=== PATIENT | male | born 1995 | race Hispanic/Latino ===

== ENCOUNTER → 2017-12-21 15:53 | Outpatient (CLI) | payer OTHER, MEDICAID, SELFPAY ==
[2017-12-21 16:27] LABS: Add Manual Diff / Slide Review NO; Basophils Percent Auto 0.3 % (0-2); Eosinophils Percent Auto 0.3 % (2-4); Hematocrit 46.7 % (41-53); Hemoglobin 15.8 g/dL (13.5-17.5); Lymphocytes Percent Auto 35.8 % (25-40); Mean Corpuscular HGB Conc 33.8 % (30-36); Mean Corpuscular Hemoglobin 30.6 PG (26-34); Mean Corpuscular Volume 90.5 fL (80-100); Monocytes Percent Auto 9.1 % (3-14); Neutrophils Absolute Auto 3600 /uL (3000-5900); Neutrophils Percent Auto 54.5 % (50-75); Platelet Count 157 X10^3/uL (150-400); Red Blood Cell Count 5.16 X10^6/uL (4.5-5.9); Red Cell Distribution Width 13.2 % (11.6-14.8); White Blood Cell Count 6.6 X10^3/uL (4.5-11.0)
[2017-12-21 16:51] LABS: Alanine Aminotransferase 16 IU/L (21-72); Aspartate Aminotransferase 38 IU/L (17-59); Lipase 82 U/L (23-300)
[2017-12-23 14:23] LABS: Valproic Acid (Depakene) Total 119.9 mg/L (50.0-100.0)
== END ==
PROVIDERS: PCP Pediatrics; Visit Provider Psychiatry & Neurology Neurology with Special Qualifications in Child Neurology
DX: R74.0 Nonspecific elevation of levels of transaminase and lactic acid dehydrogenase [LDH] (principal); R74.8 Abnormal levels of other serum enzymes; R79.89 Other specified abnormal findings of blood chemistry; T42.6X5A Adverse effect of other antiepileptic and sedative-hypnotic drugs, initial encounter
CPT/HCPCS: 36415; 80164; 83690; 84450; 84460; 85025

== ENCOUNTER 2019-03-08 17:19 | Emergency (ER) | payer OTHER, MEDICAID, SELFPAY ==
[2019-03-08] VITALS (9 sets, daily range): BP systolic 98–138; BP diastolic 42–78; PULSE 78–128; RESP 18–24; TEMP 36.7; O2SAT 92–100
--- NOTE | 2019-03-08 17:32 | ED.SEIZURE ---
HPI - Seizure <Trina Hatch DO - Last Filed: 03/09/19 07:17> General Chief Complaint: Seizure Stated Complaint: Seizure History Time Seen by Provider: 03/08/19 17:23 Source: family and EMS History of Present Illness HPI Narrative: patient is a 23-year-old male with history of seizure presenting with seizure. Mom states that he found him actively having seizure she was prolonged than normal but still under 10 minutes. He had no urinary incontinence. He had shaking all over. He was given Versed 2 mg IM by EMS. Mom thinks that he has not been taking his Depakote as prescribed. Does have some questionable drug history use although does not appear to be IVDA. patient currently resting after Versed MD complaint: seizure Related Data Previous Rx's Medication Instructions Recorded divalproex [Depakote] 500 mg PO BID #60 tab 03/08/19 Allergies Allergy/AdvReac Type Severity Reaction Status Date / Time No Known Drug Allergies Allergy Verified 03/08/19 17:37 Review of Systems <Trina Hatch DO - Last Filed: 03/09/19 07:17> Review of Systems ROS Unobtainable: Unobtainable due to medical condition Patient History <DO Carmel Jerez Last Filed: 03/09/19 07:17> Medical History Seizure disorder (Acute) Social History Smoking Status: Never smoker Exam <DO Carmel Jerez Last Filed: 03/09/19 07:17> Initial Vital Signs Initial Vital Signs: Vital Signs Temperature 98.1 F 03/08/19 17:10 Pulse Rate 128 H 03/08/19 17:10 Respiratory Rate 24 03/08/19 17:10 Blood Pressure 138/66 03/08/19 17:10 Pulse Oximetry 92 03/08/19 17:10 GENERAL: thin resting moving young man not following commands HEENT: Head atraumatic,EOMI, pupils reactive, face symmetric CARDIOVASCULAR: Regular rate and rhythm without murmurs, rubs or gallops. RESPIRATORY: Breath sounds equal bilaterally, no wheezes rales or rhonchi. ABDOMEN: Soft, nontender. Normoactive bowel sounds all 4 quadrants. No guarding or rebound. EXTREMITIES: Normal range of motion, no clubbing or edema. Neurovascularly intact NEUROLOGICAL: moving all extremities SKIN: Warm, dry, no laceration, no petechiae, no rashes or lesions. <Jordan Calderon DO - Last Filed: 03/09/19 03:16> Initial Vital Signs Initial Vital Signs: Vital Signs Temperature 98.1 F 03/08/19 17:10 Pulse Rate 128 H 03/08/19 17:10 Respiratory Rate 24 03/08/19 17:10 Blood Pressure 138/66 03/08/19 17:10 Pulse Oximetry 92 03/08/19 17:10 Course <Trina Hatch DO - Last Filed: 03/09/19 07:17> Orders Ordered: Discontinued Medications Divalproex Sodium (Depakote) 500 mg PO NOW ONE Stop: 03/08/19 20:28 Last Admin: 03/08/19 20:36 Dose: 500 mg Documented by: RAJIV Sodium Chloride (Normal Saline 0.9%) 1,000 mls @ 1,000 mls/hr IV BOLUS ONE Stop: 03/08/19 18:22 Last Infusion: 03/08/19 19:00 Dose: 0 mls/hr Documented by: Admin: 03/08/19 17:33 Dose: 1,000 mls/hr Documented by: RAJIV Vital Signs Vital signs: Vital Signs - 8 hr 03/08/19 19:30 03/08/19 20:00 03/08/19 20:43 Pulse Rate 86 83 78 Respiratory Rate 20 20 18 Blood Pressure [Right Arm] 105/60 101/60 108/78 Pulse Oximetry 97 97 100 <DO Carmel Gloria Last Filed: 03/09/19 03:16> Course Course Narrative: received in sign out from Dr. Hatch. I've performed an independent history and physical exam. Labs have returned, patient is awake and alert and asymptomatic. The Depakote is a send out and we will not receive the results today. Patient given dose of Depakote here in the department, return precautions given to him and family. Questions answered to their apparent satisfaction Orders Ordered: Discontinued Medications Divalproex Sodium (Depakote) 500 mg PO NOW ONE Stop: 03/08/19 20:28 Last Admin: 03/08/19 20:36 Dose: 500 mg Documented by: RAJIV Sodium Chloride (Normal Saline 0.9%) 1,000 mls @ 1,000 mls/hr IV BOLUS ONE Stop: 03/08/19 18:22 Last Infusion: 03/08/19 19:00 Dose: 0 mls/hr Documented by: Admin: 03/08/19 17:33 Dose: 1,000 mls/hr Documented by: RAJIV Vital Signs Vital signs: Vital Signs - 8 hr 03/08/19 19:30 03/08/19 20:00 03/08/19 20:43 Pulse Rate 86 83 78 Respiratory Rate 20 20 18 Blood Pressure [Right Arm] 105/60 101/60 108/78 Pulse Oximetry 97 97 100 MDM - Seizure <Trina Hatch DO - Last Filed: 03/09/19 07:17> Lab Data Result diagrams: 03/08/19 17:32 03/08/19 17:32 Labs: Lab Results 03/08/19 03/08/19 03/08/19 Range/Units 17:32 17:32 20:31 WBC 19.7 H (4.5-11.0) X10^3/uL RBC 5.30 (4.5-5.9) X10^6/uL Hgb 15.3 (13.5-17.5) g/dL Hct 46.2 (41-53) % MCV 87.1 (80-100) fL MCH 28.8 (26-34) PG MCHC 33.1 (30-36) % RDW 14.6 (11.6-14.8) % Plt Count 352 (150-400) X10^3/uL Neut % (Auto) 75.7 H (50-75) % Lymph % (Auto) 17.8 L (25-40) % [place]undy % (Auto) 6.0 (3-14) % Eos % (Auto) 0.1 L (2-4) % Baso % (Auto) 0.4 (0-2) % Neut # (Auto) 92925 H (4815-3265) /uL Lymph # (Auto) 3500 (6656-4296) /uL Grundy # (Auto) 1200 H (0-900) /uL Eos # (Auto) 0 (0-450) /uL Baso # (Auto) 100 (0-100) /uL Sodium 137 (137-145) mmol/L Potassium 3.6 (3.4-5.1) mmol/L Chloride 99 (98-107) mmol/L Carbon Dioxide 18 L (22-32) mmol/L BUN 7 L (9-20) mg/dL Creatinine 0.80 (0.66-1.25) mg/dL Estimated GFR > 60.0 (>60) mL/min BUN/Creatinine Ratio 8.8 (6-22) Glucose 149 H (70-100) mg/dL Calcium 9.9 (8.4-10.2) mg/dL Magnesium 2.0 (1.6-2.3) mg/dL Urine Color Yellow Urine Appearance Clear Urine pH 7.5 (4.5-8.0) Ur Specific [place] 1.020 (1.000-1.035) Urine Protein Negative (Negative) Urine Glucose (UA) Negative (Negative) g/dL Urine Ketones 1+ H (NEGATIVE) Urine Occult Blood Negative (Negative) Urine Nitrate Negative (Negative) Urine Bilirubin Negative (NEGATIVE) Urine Urobilinogen 0.2 (0.2) E.U./dL Ur Leukocyte Esterase Negative (NEGATIVE) U Opiates 300ng/mL cut (Negative) Ur Oxycodone Screen (Negative) Urine Methadone Screen (Negative) Ur Barbiturates Screen (Negative) U Tricyclic Antidepress (Negative) Ur Phencyclidine Scrn (Negative) Ur Amphetamines Screen (Negative) U Methamphetamines Scrn (Negative) Ur MDMA Scrn (Ecstasy) (Negative) U Benzodiazepines Scrn (Negative) Urine Cocaine Screen (Negative) U Marijuana (THC) Screen (Negative) 03/08/19 Range/Units 20:31 WBC (4.5-11.0) X10^3/uL RBC (4.5-5.9) X10^6/uL Hgb (13.5-17.5) g/dL Hct (41-53) % MCV (80-100) fL MCH (26-34) PG MCHC (30-36) % RDW (11.6-14.8) % Plt Count (150-400) X10^3/uL Neut % (Auto) (50-75) % Lymph % (Auto) (25-40) % Grundy % (Auto) (3-14) % Eos % (Auto) (2-4) % Baso % (Auto) (0-2) % Neut # (Auto) (8798-8564) /uL Lymph # (Auto) (7909-4568) /uL Grundy # (Auto) (0-900) /uL Eos # (Auto) (0-450) /uL Baso # (Auto) (0-100) /uL Sodium (137-145) mmol/L Potassium (3.4-5.1) mmol/L Chloride (98-107) mmol/L Carbon Dioxide (22-32) mmol/L BUN (9-20) mg/dL Creatinine (0.66-1.25) mg/dL Estimated GFR (>60) mL/min BUN/Creatinine Ratio (6-22) Glucose (70-100) mg/dL Calcium (8.4-10.2) mg/dL Magnesium (1.6-2.3) mg/dL Urine Color Urine Appearance Urine pH (4.5-8.0) Ur Specific [place] (1.000-1.035) Urine Protein (Negative) Urine Glucose (UA) (Negative) g/dL Urine Ketones (NEGATIVE) Urine Occult Blood (Negative) Urine Nitrate (Negative) Urine Bilirubin (NEGATIVE) Urine Urobilinogen (0.2) E.U./dL Ur Leukocyte Esterase (NEGATIVE) U Opiates 300ng/mL cut Negative (Negative) Ur Oxycodone Screen Negative (Negative) Urine Methadone Screen Negative (Negative) Ur Barbiturates Screen Negative (Negative) U Tricyclic Antidepress Negative (Negative) Ur Phencyclidine Scrn Negative (Negative) Ur Amphetamines Screen Negative (Negative) U Methamphetamines Scrn Negative (Negative) Ur MDMA Scrn (Ecstasy) Negative (Negative) U Benzodiazepines Scrn Positive H (Negative) Urine Cocaine Screen Negative (Negative) U Marijuana (THC) Screen Negative (Negative) Point of Care Testing Glucose POC 118 <Jordan Calderon DO - Last Filed: 03/09/19 03:16> Lab Data Labs: Lab Results 03/08/19 03/08/19 03/08/19 Range/Units 17:32 17:32 20:31 WBC 19.7 H (4.5-11.0) X10^3/uL RBC 5.30 (4.5-5.9) X10^6/uL Hgb 15.3 (13.5-17.5) g/dL Hct 46.2 (41-53) % MCV 87.1 (80-100) fL MCH 28.8 (26-34) PG MCHC 33.1 (30-36) % RDW 14.6 (11.6-14.8) % Plt Count 352 (150-400) X10^3/uL Neut % (Auto) 75.7 H (50-75) % Lymph % (Auto) 17.8 L (25-40) % Grundy % (Auto) 6.0 (3-14) % Eos % (Auto) 0.1 L (2-4) % Baso % (Auto) 0.4 (0-2) % Neut # (Auto) 19617 H (0384-1732) /uL Lymph # (Auto) 3500 (9075-7010) /uL Grundy # (Auto) 1200 H (0-900) /uL Eos # (Auto) 0 (0-450) /uL Baso # (Auto) 100 (0-100) /uL Sodium 137 (137-145) mmol/L Potassium 3.6 (3.4-5.1) mmol/L Chloride 99 (98-107) mmol/L Carbon Dioxide 18 L (22-32) mmol/L BUN 7 L (9-20) mg/dL Creatinine 0.80 (0.66-1.25) mg/dL Estimated GFR > 60.0 (>60) mL/min BUN/Creatinine Ratio 8.8 (6-22) Glucose 149 H (70-100) mg/dL Calcium 9.9 (8.4-10.2) mg/dL Magnesium 2.0 (1.6-2.3) mg/dL Urine Color Yellow Urine Appearance Clear Urine pH 7.5 (4.5-8.0) Ur Specific [place] 1.020 (1.000-1.035) Urine Protein Negative (Negative) Urine Glucose (UA) Negative (Negative) g/dL Urine Ketones 1+ H (NEGATIVE) Urine Occult Blood Negative (Negative) Urine Nitrate Negative (Negative) Urine Bilirubin Negative (NEGATIVE) Urine Urobilinogen 0.2 (0.2) E.U./dL Ur Leukocyte Esterase Negative (NEGATIVE) U Opiates 300ng/mL cut (Negative) Ur Oxycodone Screen (Negative) Urine Methadone Screen (Negative) Ur Barbiturates Screen (Negative) U Tricyclic Antidepress (Negative) Ur Phencyclidine Scrn (Negative) Ur Amphetamines Screen (Negative) U Methamphetamines Scrn (Negative) Ur MDMA Scrn (Ecstasy) (Negative) U Benzodiazepines Scrn (Negative) Urine Cocaine Screen (Negative) U Marijuana (THC) Screen (Negative) 03/08/19 Range/Units 20:31 WBC (4.5-11.0) X10^3/uL RBC (4.5-5.9) X10^6/uL Hgb (13.5-17.5) g/dL Hct (41-53) % MCV (80-100) fL MCH (26-34) PG MCHC (30-36) % RDW (11.6-14.8) % Plt Count (150-400) X10^3/uL Neut % (Auto) (50-75) % Lymph % (Auto) (25-40) % [place]undy % (Auto) (3-14) % Eos % (Auto) (2-4) % Baso % (Auto) (0-2) % Neut # (Auto) (3687-0858) /uL Lymph # (Auto) (7773-0582) /uL Grundy # (Auto) (0-900) /uL Eos # (Auto) (0-450) /uL Baso # (Auto) (0-100) /uL Sodium (137-145) mmol/L Potassium (3.4-5.1) mmol/L Chloride (98-107) mmol/L Carbon Dioxide (22-32) mmol/L BUN (9-20) mg/dL Creatinine (0.66-1.25) mg/dL Estimated GFR (>60) mL/min BUN/Creatinine Ratio (6-22) Glucose (70-100) mg/dL Calcium (8.4-10.2) mg/dL Magnesium (1.6-2.3) mg/dL Urine Color Urine Appearance Urine pH (4.5-8.0) Ur Specific [place] (1.000-1.035) Urine Protein (Negative) Urine Glucose (UA) (Negative) g/dL Urine Ketones (NEGATIVE) Urine Occult Blood (Negative) Urine Nitrate (Negative) Urine Bilirubin (NEGATIVE) Urine Urobilinogen (0.2) E.U./dL Ur Leukocyte Esterase (NEGATIVE) U Opiates 300ng/mL cut Negative (Negative) Ur Oxycodone Screen Negative (Negative) Urine Methadone Screen Negative (Negative) Ur Barbiturates Screen Negative (Negative) U Tricyclic Antidepress Negative (Negative) Ur Phencyclidine Scrn Negative (Negative) Ur Amphetamines Screen Negative (Negative) U Methamphetamines Scrn Negative (Negative) Ur MDMA Scrn (Ecstasy) Negative (Negative) U Benzodiazepines Scrn Positive H (Negative) Urine Cocaine Screen Negative (Negative) U Marijuana (THC) Screen Negative (Negative) Point of Care Testing Glucose POC 118 Discharge Plan Departure Patient Disposition: Home Clinical Impression: Seizure Discharge Date/Time: 03/08/19 21:04 Instructions: DI for Seizure Disorder -- Adult Activity Restrictions/Additional Instructions: *You have been diagnosed with [seizure with known seizure disorder and medical noncompliance] *What to do: *Take medications as directed *Follow up with your primary care provider in 2-3 days, call for an appointment. Let them know you were seen in the Emergency Department and that we ask that you be seen in follow up *Return to ER if you should have any new, worsening or concerning symptoms Prescriptions: Changed divalproex [Depakote] 500 mg tablet,delayed release (DR/EC) 500 mg PO BID Qty: 60 RF: 0 Referrals: [facility] [Provider Group] Jonas Gaffney MD [Primary Care Provider] - Lance Aragon MD [Non-Staff] - Stand Alone Forms: Work Release Note
[2019-03-08] MEDS: SODIUM CHLORIDE 0.9% 1,000 ML 1000 ML IV (17:33)
[2019-03-08 17:45] LABS: Add Manual Diff / Slide Review NO; Basophils Absolute Auto 100 /uL (0-100); Basophils Percent Auto 0.4 % (0-2); Eosinophils Absolute Auto 0 /uL (0-450); Eosinophils Percent Auto 0.1 % (2-4); Hematocrit 46.2 % (41-53); Hemoglobin 15.3 g/dL (13.5-17.5); Lymphocytes Absolute Auto 3500 /uL (1100-4500); Lymphocytes Percent Auto 17.8 % (25-40); Mean Corpuscular HGB Conc 33.1 % (30-36); Mean Corpuscular Hemoglobin 28.8 PG (26-34); Mean Corpuscular Volume 87.1 fL (80-100); Monocytes Absolute Auto 1200 /uL (0-900); Neutrophils Absolute Auto 14900 /uL (1500-7000); Neutrophils Percent Auto 75.7 % (50-75); Platelet Count 352 X10^3/uL (150-400); Red Cell Distribution Width 14.6 % (11.6-14.8); White Blood Cell Count 19.7 X10^3/uL (4.5-11.0)
[2019-03-08 17:55] LABS: BUN Creatinine Ratio 8.8 (6-22); Blood Urea Nitrogen 7 mg/dL (9-20); Calcium 9.9 mg/dL (8.4-10.2); Carbon Dioxide 18 mmol/L (22-32); Chloride 99 mmol/L (98-107); Estimated Glomerular Filt Rate > 60.0 mL/min (>60); Glucose 149 mg/dL (70-100); HEMOLYSIS 28 (0-50); Potassium 3.6 mmol/L (3.4-5.1); Sodium 137 mmol/L (137-145)
[2019-03-08] MEDS: DIVALPROEX DR 250 MG TABLET 500 MG PO (20:36)
[2019-03-08 20:43] LABS: Appearance Urine UA CLEAR; Bilirubin Urine UA NEGATIVE (NEGATIVE); Color Urine UA YELLOW; Glucose Urine UA NEGATIVE (Negative); Ketones Urine UA 1+ (NEGATIVE); Leukocyte Esterase Urine UA NEGATIVE (NEGATIVE); Nitrite Urine UA NEGATIVE (Negative); Occult Blood Urine UA NEGATIVE (Negative); Protein Urine UA NEGATIVE (Negative); Urobilinogen Urine UA 0.2 E.U./dL (0.2); pH Urine UA 7.5 (4.5-8.0)
--- NOTE | 2019-03-08 20:44 | PC.NURSE ---
Pt states he has not been taking his medication. Urged to take meds as ordered. Discussed risks of not taking medications including / brain injury. Pt verbalized understanding and agreed to take his medications as ordered.
[2019-03-08 20:47] LABS: UR Morphine/Opiate cutoff 300 Negative (Negative); Ur Creatinine Normal (Normal); Ur Specific Gravity Normal (Normal); Urine Amphetamines Negative (Negative); Urine Barbiturates Negative (Negative); Urine Benzodiazepines Positive (Negative); Urine Cocaine Negative (Negative); Urine MDMA Negative (Negative); Urine Methadone Negative (Negative); Urine Methamphetamines Negative (Negative); Urine Oxycodone Negative (Negative); Urine Phencyclidine Negative (Negative); Urine Tetrahydrocannabinol Negative (Negative); Urine Tricyclic Antidepressant Negative (Negative); Urine pH Normal (Normal)
[2019-03-12 14:31] LABS: Valproic Acid (Depakene) Total < 12.5 mg/L (50.0-100.0)
== END 2019-03-08 21:04 | disposition home or self-care (01) ==
PROVIDERS: Emergency Medicine; Emergency Provider Emergency Medicine; PCP Pediatrics
DX: G40.909 Epilepsy, unspecified, not intractable, without status epilepticus (principal)
CPT/HCPCS: 36415; 80048; 80164; 80305; 81003; 83735; 85025; 93005; 96360; 99284

== ENCOUNTER 2019-04-13 06:36 | Emergency (ER) | payer OTHER, MEDICAID, SELFPAY ==
[2019-04-13 06:40] VITALS: BP 116/57; PULSE 101; RESP 22; O2SAT 96
[2019-04-13 06:44] VITALS: BP 116/57; PULSE 99; RESP 24; TEMP 36.9; O2SAT 100; BMI 20.1
--- NOTE | 2019-04-13 06:44 | ED.GENADULT ---
HPI - General Adult <Sen Martell DO - Last Filed: 04/15/19 17:56> General Chief complaint: Seizure Stated complaint: Seizure Time Seen by Provider: 04/13/19 06:38 Source: patient and EMS Mode of arrival: EMS Limitations: no limitations History of Present Illness HPI narrative: 23-year-old male. States he has a history of seizures. Is on Depakote for these. He is managed by his primary provider. Reports today that he was at work and had a seizure. EMS was called. EMS reports that the onset of the seizure was unwitnessed however patient was seen to be in a generalized tonic-clonic seizure. Unsure as to how long the seizure lasted. EMS reports the patient was postictal when they arrived however this does seem to be improving. Patient does report that he has been taking his medications. He reports that his seizures have been more frequent recently. Related Data Previous Rx's Medication Instructions Recorded divalproex [Depakote] 500 mg PO BID #60 tab 03/08/19 Allergies Allergy/AdvReac Type Severity Reaction Status Date / Time No Known Drug Allergies Allergy Verified 03/08/19 17:37 Review of Systems <Sen Martell DO - Last Filed: 04/15/19 17:56> Constitutional Constitutional: Denies headache(s) ENT Ears, Nose, Mouth, and Throat: Denies headache(s) Cardiovascular Cardiovascular: Denies chest pain and Denies dyspnea Respiratory Respiratory: Denies dyspnea Gastrointestinal Gastrointestinal: Denies abdominal pain Musculoskeletal Musculoskeletal: Denies myalgias and Denies arthralgias Integumentary/Breasts Skin/Breast: Denies rash Neurologic Neurologic: Denies headache(s) Hematologic/Lymphatic Hematologic/Lymphatic: Denies easy bleeding and Denies easy bruising Patient History <Sen Martell DO - Last Filed: 04/15/19 17:56> Medical History Seizure disorder (Acute) Social History Smoking Status: Never smoker Smoking Status: Never smoker alcohol intake frequency: 0-2 drinks per day Substance Use Type: marijuana Exam <Sen Martell DO - Last Filed: 04/15/19 17:56> Initial Vital Signs Initial Vital Signs: Vital Signs Pulse Rate 101 H 04/13/19 06:40 Respiratory Rate 22 04/13/19 06:40 Blood Pressure 116/57 L 04/13/19 06:40 Pulse Oximetry 96 04/13/19 06:40 Const General: cooperative and comfortable HENMT Head: normal to inspection and atraumatic Face and sinus: other (Contusion left cheek) Resp Effort & Inspection: normal respiratory effort Auscultation: clear to auscultation bilaterally Cardio Rate: regular rate Rhythm: regular rhythm Skin Other: Contusion left cheek over the zygomatic arch Neuro General: alert and awake Speech: speech normal Extrem General: normal to inspection, capillary refill normal and No edema Other: Full range of motion upper lower extremities Psych Appearance: grossly normal and well kempt <Jordan Calderon DO - Last Filed: 04/13/19 17:46> Initial Vital Signs Initial Vital Signs: Vital Signs Pulse Rate 101 H 04/13/19 06:40 Respiratory Rate 22 04/13/19 06:40 Blood Pressure 116/57 L 04/13/19 06:40 Pulse Oximetry 96 04/13/19 06:40 Scores <Sen Martell DO - Last Filed: 04/15/19 17:56> GCS Rona coma scale eye opening: Spontaneous Rona coma scale verbal response: Orientated Vanderbilt coma scale motor response: Obey commands Rona coma scale total score: 15 Course <Sen Martell DO - Last Filed: 04/15/19 17:56> Orders Ordered: ED Orders 04/13/19 06:40 Basic Metabolic Panel Stat Complete Blood Count AUTO DIFF Stat Ethanol (ETOH) Stat Prolactin Stat Valproic Acid (Depakene) Total Stat Vital Signs Vital signs: Vital Signs - 8 hr 04/13/19 06:44 Temperature 98.4 F Pulse Rate 99 H Respiratory Rate 24 Blood Pressure 116/57 L Pulse Oximetry 100 <Jordan Calderon DO - Last Filed: 04/13/19 17:46> Course Course Narrative: Patient received in sign-out from Dr. Martell. I have performed an independent history and physical. He is at his baseline and feeling well. He states he has been taking all of his medications denies any recent injury or illness. Family is coming to pick him up. Return precautions given, questions answered to his apparent satisfaction. Orders Ordered: ED Orders 04/13/19 06:40 Basic Metabolic Panel Stat Complete Blood Count AUTO DIFF Stat Ethanol (ETOH) Stat Prolactin Stat Valproic Acid (Depakene) Total Stat Vital Signs Vital signs: Vital Signs - 8 hr 04/13/19 06:44 Temperature 98.4 F Pulse Rate 99 H Respiratory Rate 24 Blood Pressure 116/57 L Pulse Oximetry 100 Medical Decision Making <Sen Martell, DO - Last Filed: 04/15/19 17:56> Lab Data Result diagrams: 04/13/19 06:40 04/13/19 06:40 Labs: Lab Results 04/13/19 04/13/19 Range/Units 06:40 06:40 WBC 9.4 (4.5-11.0) X10^3/uL RBC 5.06 (4.5-5.9) X10^6/uL Hgb 14.8 (13.5-17.5) g/dL Hct 43.9 (41-53) % MCV 86.7 (80-100) fL MCH 29.3 (26-34) PG MCHC 33.8 (30-36) % RDW 15.0 H (11.6-14.8) % Plt Count 213 (150-400) X10^3/uL Neut % (Auto) 41.2 L (50-75) % Lymph % (Auto) 47.2 H (25-40) % [place] % (Auto) 8.9 (3-14) % Eos % (Auto) 1.8 L (2-4) % Baso % (Auto) 0.9 (0-2) % Neut # (Auto) 3900 (8211-3809) /uL Lymph # (Auto) 4400 (5690-1106) /uL [place] # (Auto) 800 (0-900) /uL Eos # (Auto) 200 (0-450) /uL Baso # (Auto) 100 (0-100) /uL Sodium 142 (137-145) mmol/L Potassium 4.4 (3.4-5.1) mmol/L Chloride 99 (98-107) mmol/L Carbon Dioxide 22 (22-32) mmol/L BUN 9 (9-20) mg/dL Creatinine 1.10 (0.66-1.25) mg/dL Estimated GFR > 60.0 (>60) mL/min BUN/Creatinine Ratio 8.2 (6-22) Glucose 110 H (70-100) mg/dL Calcium 9.7 (8.4-10.2) mg/dL Prolactin 73.2 H (3.7-17.9) ng/mL Ethyl Alcohol < 10 ( - 10) mg/dL [facility] Narrative Medical decision making narrative: Abrasion on his left cheek without any intervention needed in the ER. Has a history of seizures. This appears to be a seizure. Still somewhat confused upon arrival. Labs ordered. Care turned over to Dr. Calderon to follow-up on labs and disposition. <Jordan Calderon, DO - Last Filed: 04/13/19 17:46> Lab Data Labs: Lab Results 04/13/19 04/13/19 Range/Units 06:40 06:40 WBC 9.4 (4.5-11.0) X10^3/uL RBC 5.06 (4.5-5.9) X10^6/uL Hgb 14.8 (13.5-17.5) g/dL Hct 43.9 (41-53) % MCV 86.7 (80-100) fL MCH 29.3 (26-34) PG MCHC 33.8 (30-36) % RDW 15.0 H (11.6-14.8) % Plt Count 213 (150-400) X10^3/uL Neut % (Auto) 41.2 L (50-75) % Lymph % (Auto) 47.2 H (25-40) % [place]anner % (Auto) 8.9 (3-14) % Eos % (Auto) 1.8 L (2-4) % Baso % (Auto) 0.9 (0-2) % Neut # (Auto) 3900 (6435-4791) /uL Lymph # (Auto) 4400 (8604-2471) /uL Banner # (Auto) 800 (0-900) /uL Eos # (Auto) 200 (0-450) /uL Baso # (Auto) 100 (0-100) /uL Sodium 142 (137-145) mmol/L Potassium 4.4 (3.4-5.1) mmol/L Chloride 99 (98-107) mmol/L Carbon Dioxide 22 (22-32) mmol/L BUN 9 (9-20) mg/dL Creatinine 1.10 (0.66-1.25) mg/dL Estimated GFR > 60.0 (>60) mL/min BUN/Creatinine Ratio 8.2 (6-22) Glucose 110 H (70-100) mg/dL Calcium 9.7 (8.4-10.2) mg/dL Prolactin 73.2 H (3.7-17.9) ng/mL Ethyl Alcohol < 10 ( - 10) mg/dL Discharge Plan Departure Patient Disposition: Home Clinical Impression: Seizure, Seizure disorder Discharge Date/Time: 04/13/19 09:32 Instructions: DI for Seizure Disorder -- Adult Activity Restrictions/Additional Instructions: *You have been diagnosed with [ breakthrough seizure ] *What to do: *Take medications as directed *Follow up with your primary care provider in 2-3 days, call for an appointment. Let them know you were seen in the Emergency Department and that we ask that you be seen in follow up *Return to ER if you should have any new, worsening or concerning symptoms Prescriptions: No Action divalproex [Depakote] 500 mg tablet,delayed release (DR/EC) 500 mg PO BID Qty: 60 RF: 0 Referrals: Jonas Gaffney MD [Primary Care Provider] -
[2019-04-13 06:55] LABS: Add Manual Diff / Slide Review NO; Basophils Absolute Auto 100 /uL (0-100); Basophils Percent Auto 0.9 % (0-2); Eosinophils Absolute Auto 200 /uL (0-450); Eosinophils Percent Auto 1.8 % (2-4); Hematocrit 43.9 % (41-53); Hemoglobin 14.8 g/dL (13.5-17.5); Lymphocytes Absolute Auto 4400 /uL (1100-4500); Lymphocytes Percent Auto 47.2 % (25-40); Mean Corpuscular HGB Conc 33.8 % (30-36); Mean Corpuscular Hemoglobin 29.3 PG (26-34); Mean Corpuscular Volume 86.7 fL (80-100); Monocytes Absolute Auto 800 /uL (0-900); Monocytes Percent Auto 8.9 % (3-14); Neutrophils Absolute Auto 3900 /uL (1500-7000); Neutrophils Percent Auto 41.2 % (50-75); Platelet Count 213 X10^3/uL (150-400); Red Blood Cell Count 5.06 X10^6/uL (4.5-5.9); White Blood Cell Count 9.4 X10^3/uL (4.5-11.0)
[2019-04-13 07:00] VITALS: BP 112/45; PULSE 87; RESP 34; O2SAT 96
[2019-04-13 07:02] LABS: BUN Creatinine Ratio 8.2 (6-22); Blood Urea Nitrogen 9 mg/dL (9-20); Calcium 9.7 mg/dL (8.4-10.2); Carbon Dioxide 22 mmol/L (22-32); Chloride 99 mmol/L (98-107); Estimated Glomerular Filt Rate > 60.0 mL/min (>60); Ethanol (ETOH) < 10 mg/dL; Glucose 110 mg/dL (70-100); HEMOLYSIS < 15 (0-50); Potassium 4.4 mmol/L (3.4-5.1); Sodium 142 mmol/L (137-145)
[2019-04-13 07:18] LABS: Prolactin 73.2 ng/mL (3.7-17.9)
[2019-04-13 08:00] VITALS: BP 93/52; PULSE 82; RESP 13; O2SAT 98
[2019-04-13 08:30] VITALS: BP 108/55; PULSE 63; RESP 14; O2SAT 96
[2019-04-13 09:25] VITALS: BP 101/58; PULSE 73; RESP 16; O2SAT 97
[2019-04-16 13:52] LABS: Valproic Acid (Depakene) Total 56.9 mg/L (50.0-100.0)
== END 2019-04-13 09:32 | disposition home or self-care (01) ==
PROVIDERS: Emergency Medicine; Emergency Provider Emergency Medicine; PCP Pediatrics
DX: G40.909 Epilepsy, unspecified, not intractable, without status epilepticus (principal)
CPT/HCPCS: 80048; 80164; 80320; 84146; 85025; 99283

== ENCOUNTER 2019-06-14 22:28 | Emergency (ER) | payer OTHER, MEDICAID, SELFPAY ==
[2019-06-14 22:36] VITALS: BP 139/88; PULSE 92; RESP 18; TEMP 36.8; O2SAT 98
[2019-06-14] MEDS: TET,DIPH,PERTUSS(ACELL),VAC/PF 0.5 ML SYRINGE IM (22:47)
[2019-06-14] MEDS: LIDO 1%/SOD BICARB 8.4% (10ML) 10 ML SYRINGE INJ (22:47)
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
[2019-06-14] MEDS: BACITRACIN OINT 0.9 GM PCKT 2 APPLIC TOP (23:20)
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
== END 2019-06-14 23:26 | disposition home or self-care (01) ==
PROVIDERS: Emergency Provider Emergency Medicine; PCP Pediatrics
DX: S51.011A Laceration without foreign body of right elbow, initial encounter (principal); V19.3XXA Pedal cyclist (driver) (passenger) injured in unspecified nontraffic accident, initial encounter; Z23 Encounter for immunization
CPT/HCPCS: 12001; 90471; 99283; 90715

== ENCOUNTER 2019-07-01 17:01 | Emergency (ER) | payer OTHER, MEDICAID, SELFPAY ==
[2019-07-01 17:04] VITALS: BP 131/63; PULSE 111; RESP 16; TEMP 37; O2SAT 99
--- NOTE | 2019-07-01 17:18 | DI.CT.S_ITS ---
PROCEDURE: CT CERVICAL SPINE WO CON INDICATIONS: trauma TECHNIQUE: Noncontrast 3 mm thick sections acquired from the skull base to the T4 level. Sagittal and coronal reformats were then constructed. For radiation dose reduction, the following was used: automated exposure control, adjustment of mA and/or kV according to patient size. COMPARISON: [facility], CT, CT HEAD/BRAIN WO CON, 07/01/2019, 17:16. [facility], CR, CERVICAL SPINE 2 OR 3 VIEWS, 09/05/2012, 11:22. FINDINGS: Image quality: Excellent. Bones: No fractures or dislocations. Visualized superior ribs are intact. Soft tissues: Prevertebral soft tissues are normal in thickness. No paravertebral hematomas. No apical pneumothoraces. IMPRESSION: Negative for displaced fracture. Dictated by: Bo Sandoval M.D. on 07/01/2019 at 16:44 Approved by: Bo Sandoval M.D. on 07/01/2019 at 16:45
--- NOTE | 2019-07-01 17:18 | DI.CT.S_ITS ---
PROCEDURE: CT HEAD/BRAIN WO CON INDICATIONS: trauma TECHNIQUE: Noncontrast 4.5 mm thick angled axial sections acquired from the foramen magnum to the vertex, with coronal and sagittal reformats. For radiation dose reduction, the following was used: automated exposure control, adjustment of mA and/or kV according to patient size. COMPARISON: [facility], CT, HEAD WITHOUT CONTRAST, 09/05/2012, 11:28. [facility], CT, CT CERVICAL SPINE WO CON, 07/01/2019, 17:16. FINDINGS: Image quality: Excellent. CSF spaces: Basal cisterns are patent. No extra-axial fluid collections. Ventricles are normal in size and shape. Brain: No midline shift. No intracranial masses or hemorrhage. Redd-white matter interface is normal. Skull and face: Calvarium and visualized facial bones are intact, without suspicious lesions. Sinuses: Visualized sinuses and mastoids are clear. IMPRESSION: No acute intracranial process is seen. No acute intracranial hemorrhage is seen. Dictated by: Bo Sandoval M.D. on 07/01/2019 at 16:37 Approved by: Bo Sandoval M.D. on 07/01/2019 at 16:37
[2019-07-01] MEDS: SODIUM CHLORIDE 0.9% 1,000 ML 1000 ML IV (17:45)
[2019-07-01 18:01] LABS: Magnesium 2.2 mg/dL (1.6-2.3)
[2019-07-01 18:02] LABS: Alanine Aminotransferase 15 IU/L (<50); Albumin 4.9 g/dL (3.5-5.0); Albumin Globulin Ratio 1.5 (1.0-2.8); Alkaline Phosphatase 85 U/L (38-126); Aspartate Aminotransferase 26 IU/L (17-59); BUN Creatinine Ratio 13.3 (6-22); Bilirubin Total 0.7 mg/dL (0.2-1.3); Blood Urea Nitrogen 10 mg/dL (9-20); Calcium 10.1 mg/dL (8.4-10.2); Carbon Dioxide 19 mmol/L (22-32); Chloride 103 mmol/L (98-107); Estimated Glomerular Filt Rate > 60.0 mL/min (>60); Ethanol (ETOH) < 10 mg/dL; Globulin 3.3 g/dL (1.7-4.1); Glucose 109 mg/dL (70-100); HEMOLYSIS < 15 (0-50); Potassium 4.2 mmol/L (3.4-5.1); Sodium 140 mmol/L (137-145); Total Protein 8.2 g/dL (6.3-8.2)
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
[2019-07-01] MEDS: DIVALPROEX DR 250 MG TABLET 500 MG PO (18:17)
[2019-07-01 18:19] LABS: Prolactin 20.5 ng/mL (3.7-17.9)
[2019-07-01 18:26] LABS: Add Manual Diff / Slide Review NO; Basophils Absolute Auto 0 /uL (0-100); Basophils Percent Auto 0.4 % (0-2); Eosinophils Absolute Auto 0 /uL (0-450); Eosinophils Percent Auto 0.3 % (2-4); Hematocrit 44.1 % (41-53); Hemoglobin 15.2 g/dL (13.5-17.5); Lymphocytes Absolute Auto 1300 /uL (1100-4500); Lymphocytes Percent Auto 13.8 % (25-40); Mean Corpuscular HGB Conc 34.4 % (30-36); Mean Corpuscular Hemoglobin 29.8 PG (26-34); Mean Corpuscular Volume 86.4 fL (80-100); Monocytes Absolute Auto 500 /uL (0-900); Monocytes Percent Auto 5.2 % (3-14); Neutrophils Absolute Auto 7700 /uL (1500-7000); Neutrophils Percent Auto 80.3 % (50-75); Platelet Count 378 X10^3/uL (150-400); White Blood Cell Count 9.6 X10^3/uL (4.5-11.0)
[2019-07-01 18:30] VITALS: BP 110/80; PULSE 98; RESP 16; O2SAT 99
[2019-07-02 02:01] LABS: Valproic Acid (Depakene) Total < 4 ug/mL (50-100)
== END 2019-07-01 19:12 | disposition home or self-care (01) ==
PROVIDERS: Emergency Medicine; Emergency Provider Emergency Medicine; PCP Pediatrics
DX: R56.9 Unspecified convulsions (principal); S09.90XA Unspecified injury of head, initial encounter; S19.9XXA Unspecified injury of neck, initial encounter; V19.9XXA Pedal cyclist (driver) (passenger) injured in unspecified traffic accident, initial encounter
CPT/HCPCS: 36415; 70450; 72125; 80053; 80164; 80320; 83735; 84146; 85025; 93005; 96360; 99285

== ENCOUNTER 2019-08-09 18:56 | Emergency (ER) | payer OTHER, MEDICAID, SELFPAY ==
--- NOTE | 2019-08-09 18:54 | DI.CT.S_ITS ---
PROCEDURE: CT HEAD/BRAIN WO CON INDICATIONS: head injury, seizure TECHNIQUE: Noncontrast 4.5 mm thick angled axial sections acquired from the foramen magnum to the vertex, with coronal and sagittal reformats. For radiation dose reduction, the following was used: automated exposure control, adjustment of mA and/or kV according to patient size. COMPARISON: [facility], CT, HEAD WITHOUT CONTRAST, 09/05/2012, 11:28. [facility], CT, CT HEAD/BRAIN WO CON, 07/01/2019, 17:16. FINDINGS: Image quality: Excellent. CSF spaces: Basal cisterns are patent. No extra-axial fluid collections. Ventricles are prominent but symmetrical in size and shape. Ventricular prominence is unchanged since the last CT. Brain: No midline shift. No intracranial masses or hemorrhage. Redd-white matter interface is normal. Skull and face: Calvarium and visualized facial bones are intact, without suspicious lesions. Sinuses: Visualized sinuses and mastoids are clear. IMPRESSION: 1. No acute intracranial abnormalities. A cause for seizure is identified. 2. Stable prominent cerebral ventricles since the last CT. Dictated by: Olamide Clark M.D. on 08/09/2019 at 20:01 Approved by: Olamide Clark M.D. on 08/09/2019 at 20:04
--- NOTE | 2019-08-09 18:59 | ED_ITS ---
HPI - Seizure General Chief Complaint: Seizure Stated Complaint: seizure Time Seen by Provider: 08/09/19 18:56 Source: patient and EMS Mode of arrival: EMS Limitations: no limitations History of Present Illness HPI Narrative: 23-year-old male nonsmoker with the seizure disorder and frequent episodes of medical noncompliance presents by EMS for evaluation of a non witnessed seizure in which he suffered a head injury. EMS found him and had moderate postictal phase with some nausea but no vomiting. He has had no fever chills. He states that he had been off his Depakote for upwards of a month and just restarted it a day or 2 ago. He is apologetic and states he knows better. He denies any extremity injury and is otherwise well and free of complaint MD complaint: seizure Onset (ago): minute(s) Description of Episode: loss of consciousness Witnessed: no Trauma: Yes Seizure History: known seizure disorder Place: work Possible Precipitating Event: other Associated symptoms: denies other symptoms Treatments prior to arrival: none Related Data Previous Rx's Medication Instructions Recorded divalproex [Depakote] 500 mg PO BID #60 tab 03/08/19 Allergies Allergy/AdvReac Type Severity Reaction Status Date / Time No Known Drug Allergies Allergy Verified 07/01/19 17:08 Review of Systems Constitutional Constitutional: Denies chills, Denies fatigue, Denies fever(s), Denies frequent falls, Denies lethargy and Denies weakness Eyes Eyes: Denies change in vision, Denies eye discharge, Denies irritation and D enies loss of vision ENT Ears, Nose, Mouth, and Throat: Denies change in voice, Denies dizziness, Denies neck pain, Denies sore throat and Denies throat swelling Cardiovascular Cardiovascular: Denies chest pain, Denies irregular heart rhythm, Denies lightheadedness, Denies palpitations, Denies dyspnea, Denies dyspnea on exertion and Denies orthopnea Respiratory Respiratory: Denies cough, Denies dyspnea, Denies dyspnea on exertion and Denies wheezing Gastrointestinal Gastrointestinal: Denies abdominal pain, Denies change in bowel habits, Denies diarrhea, Denies nausea and Denies vomiting Musculoskeletal Musculoskeletal: Denies neck pain and Denies numbness Integumentary/Breasts Skin/Breast: Denies pruritus, Denies erythema, Denies rash and Denies wounds Neurologic Neurologic: Denies behavioral changes, Denies confusion, Denies dizziness, Denies frequent falls, Denies loss of vision, Denies numbness, Reports seizure-l markell activity and Denies weakness Psychiatric Psychiatric: Denies anxiety, Denies behavioral changes, Denies confusion, Denies depression, Denies homicidal ideation and Denies suicidal ideation Endocrine Endocrine: Denies fatigue, Denies flushing and Denies palpitations Hematologic/Lymphatic Hematologic/Lymphatic: Denies easy bruising Allergic/Immunologic Allergic/Immunologic: Denies urticaria, Denies throat swelling and Denies wheezing Patient History Medical History Seizure disorder (Acute) Social History Smoking Status: Never smoker Smoking Status: Never smoker alcohol intake frequency: 0-2 drinks per day Substance Use Type: marijuana Exam Narrative Exam Narrative: GENERAL: [22] year old patient appears stated age. Well- nourished, well-developed patient, in mild distress. GCS 15 HEAD: 2 x 3 cm hematoma the right front forehead. Normocephalic. EYES: Pupils equal round and reactive. Extraocular motions intact. No scleral icterus. No injection or drainage. ENT: Nose without bleeding, purulent drainage. Throat without erythema, tonsillar hypertrophy or exudate. Airway patent. NECK: Trachea midline. Non tender CARDIOVASCULAR: Regular rate and rhythm without murmurs, gallops, or rubs. RESPIRATORY: Clear to auscultation. Breath sounds equal bilaterally. No wheezes, rales, or rhonchi. GASTROINTESTINAL: Abdomen soft, non-tender, nondistended. EXTREMITIES: No edema or joint tenderness. BACK: Nontender without deformity or crepitance. No flank tenderness. NEURO: AOx3. SKIN: No rash or erythema of visible areas Initial Vital Signs Initial Vital Signs: Vital Signs Temperature 99 F 08/09/19 19:18 Pulse Rate 85 08/09/19 19:18 Respiratory Rate 16 08/09/19 19:18 Blood Pressure 114/51 L 08/09/19 19:18 Pulse Oximetry 97 08/09/19 19:18 Course Orders Ordered: Discontinued Medications Fosphenytoin Sodium 1,000 mg/ (Sodium Chloride) 120 mls @ 240 mls/hr IV NOW ONE Stop: 08/09/19 19:02 Last Infusion: 08/09/19 19:55 Dose: 0 mls/hr Documented by: Admin: 08/09/19 19:24 Dose: 240 mls/hr Documented by: GOOD Ketorolac Tromethamine (Toradol) 15 mg IV NOW ONE Stop: 08/09/19 20:39 Last Admin: 08/09/19 20:52 Dose: 15 mg Documented by: GOOD MDM - Seizure Lab Data Result diagrams: 08/09/19 19:45 08/09/19 19:45 Labs: Lab Results 08/09/19 08/09/19 Range/Units 19:45 19:45 WBC 11.1 H (4.5-11.0) X10^3/uL RBC 4.70 (4.5-5.9) X10^6/uL Hgb 13.8 (13.5-17.5) g/dL Hct 40.4 L (41-53) % MCV 85.9 (80-100) fL MCH 29.4 (26-34) PG MCHC 34.3 (30-36) % RDW 15.0 H (11.6-14.8) % Plt Count 243 (150-400) X10^3/uL Neut % (Auto) 77.6 H (50-75) % Lymph % (Auto) 12.5 L (25-40) % Mcintosh % (Auto) 9.0 (3-14) % Eos % (Auto) 0.6 L (2-4) % Baso % (Auto) 0.3 (0-2) % Neut # (Auto) 8600 H (5098-0760) /uL Lymph # (Auto) 1400 (2748-0856) /uL Mcintosh # (Auto) 1000 H (0-900) /uL Eos # (Auto) 100 (0-450) /uL Baso # (Auto) 0 (0-100) /uL Sodium 138 (137-145) mmol/L Potassium 3.7 (3.4-5.1) mmol/L Chloride 101 (98-107) mmol/L Carbon Dioxide 27 (22-32) mmol/L BUN 14 (9-20) mg/dL Creatinine 0.80 (0.66-1.25) mg/dL Estimated GFR > 60.0 (>60) mL/min BUN/Creatinine Ratio 17.5 (6-22) Glucose 80 (70-100) mg/dL Calcium 9.7 (8.4-10.2) mg/dL Discharge Plan Departure Patient Disposition: Home Clinical Impression: Seizure Forehead contusion Qualifiers: Encounter type: initial encounter Qualified Code(s): S00.83XA - Contusion of other part of head, initial encounter Discharge Date/Time: 08/09/19 21:53 Instructions: DI for Seizure Disorder -- Adult Activity Restrictions/Additional Instructions: *You have been diagnosed with [breakthrough seizure, likely secondary to medical noncompliance] *What to do: *Take medications as directed *Follow up with your primary care provider in 2-3 days, call for an appointment. Let them know you were seen in the Emergency Department and that we ask that you be seen in follow up *Return to ER if you should have any new, worsening or concerning symptoms Prescriptions: No Action divalproex [Depakote] 500 mg tablet,delayed release (DR/EC) 500 mg PO BID Qty: 60 RF: 0 Referrals: Jonas Gaffney MD [Primary Care Provider] -
[2019-08-09 19:18] VITALS: BP 114/51; PULSE 85; RESP 16; TEMP 37.2; O2SAT 97; BMI 19.2
[2019-08-09] MEDS: FOSPHENYTOIN 1,000 MG in SODIUM CHLORIDE 0.9% 100 ML 240 ML IV (19:24)
[2019-08-09 19:53] LABS: Add Manual Diff / Slide Review NO; Basophils Absolute Auto 0 /uL (0-100); Basophils Percent Auto 0.3 % (0-2); Eosinophils Absolute Auto 100 /uL (0-450); Eosinophils Percent Auto 0.6 % (2-4); Hematocrit 40.4 % (41-53); Hemoglobin 13.8 g/dL (13.5-17.5); Lymphocytes Absolute Auto 1400 /uL (1100-4500); Lymphocytes Percent Auto 12.5 % (25-40); Mean Corpuscular HGB Conc 34.3 % (30-36); Mean Corpuscular Hemoglobin 29.4 PG (26-34); Mean Corpuscular Volume 85.9 fL (80-100); Monocytes Absolute Auto 1000 /uL (0-900); Neutrophils Absolute Auto 8600 /uL (1500-7000); Neutrophils Percent Auto 77.6 % (50-75); Platelet Count 243 X10^3/uL (150-400); White Blood Cell Count 11.1 X10^3/uL (4.5-11.0)
[2019-08-09 20:04] LABS: BUN Creatinine Ratio 17.5 (6-22); Blood Urea Nitrogen 14 mg/dL (9-20); Calcium 9.7 mg/dL (8.4-10.2); Carbon Dioxide 27 mmol/L (22-32); Chloride 101 mmol/L (98-107); Estimated Glomerular Filt Rate > 60.0 mL/min (>60); Glucose 80 mg/dL (70-100); HEMOLYSIS < 15 (0-50); Potassium 3.7 mmol/L (3.4-5.1); Sodium 138 mmol/L (137-145)
[2019-08-09 20:12] VITALS: BP 105/58; PULSE 85; RESP 16; O2SAT 96
--- NOTE | 2019-08-09 20:38 | PC.NURSE ---
Pt authorizes RN to speak with Pt mother on phone. Mother of Pt Alejandra states Pt has been taking only half of prescribed dose of Dilantin because it makes him groggy.
[2019-08-09] MEDS: KETOROLAC 60 MG/2 ML VIAL 15 MG IV (20:52)
[2019-08-09 21:00] VITALS: BP 103/57; PULSE 92; O2SAT 98
[2019-08-11 07:36] LABS: Valproic Acid (Depakene) Total 57 ug/mL (50-100)
== END 2019-08-09 21:53 | disposition home or self-care (01) ==
PROVIDERS: Emergency Provider Emergency Medicine; PCP Pediatrics
DX: G40.89 Other seizures (principal); S00.83XA Contusion of other part of head, initial encounter; W22.8XXA Striking against or struck by other objects, initial encounter
CPT/HCPCS: 36415; 70450; 80048; 80164; 85025; 96365; 96375; 99282; 99284; J1885; Q2009

== ENCOUNTER 2019-08-21 19:00 | Emergency (ER) | payer OTHER, MEDICAID, SELFPAY ==
[2019-08-21] VITALS (14 sets, daily range): BP systolic 82–135; BP diastolic 47–76; PULSE 72–127; RESP 16–45; TEMP 37.1; O2SAT 93–98
[2019-08-21] MEDS: SODIUM CHLORIDE 0.9% 1,000 ML 150 ML IV (19:15)
[2019-08-21 19:33] LABS: Add Manual Diff / Slide Review NO; Basophils Absolute Auto 100 /uL (0-100); Basophils Percent Auto 1.3 % (0-2); Eosinophils Absolute Auto 100 /uL (0-450); Eosinophils Percent Auto 1.2 % (2-4); Hemoglobin 14.6 g/dL (13.5-17.5); Lymphocytes Absolute Auto 1000 /uL (1100-4500); Lymphocytes Percent Auto 11.8 % (25-40); Mean Corpuscular HGB Conc 34.8 % (30-36); Mean Corpuscular Hemoglobin 30.5 PG (26-34); Mean Corpuscular Volume 87.6 fL (80-100); Monocytes Absolute Auto 500 /uL (0-900); Monocytes Percent Auto 5.7 % (3-14); Neutrophils Absolute Auto 7000 /uL (1500-7000); Platelet Count 300 X10^3/uL (150-400); Red Cell Distribution Width 15.1 % (11.6-14.8); White Blood Cell Count 8.7 X10^3/uL (4.5-11.0)
--- NOTE | 2019-08-21 19:44 | ED.SEIZURE ---
HPI - Seizure General Chief Complaint: Seizure Stated Complaint: Seizure Time Seen by Provider: 08/21/19 19:01 Source: EMS Mode of arrival: EMS History of Present Illness HPI Narrative: 23M non-smoker with history of seizure disorder presents with an unwitnessed seizure while working. He was post ictal when medics arrived and became a bit aggressive and was given Versed 5mg IV. Very little other info given. Frequent visitor to the ED under similar circumstances. No evidence of injury. No report of abnormal behavior prior to episode. Related Data Previous Rx's Medication Instructions Recorded divalproex [Depakote] 500 mg PO BID #60 tab 03/08/19 Allergies Allergy/AdvReac Type Severity Reaction Status Date / Time No Known Drug Allergies Allergy Verified 07/01/19 17:08 Review of Systems Review of Systems Narrative: obtained once patient awake Constitutional Constitutional: Denies chills, Denies fatigue, Denies fever(s), Denies frequent falls, Denies lethargy and Denies weakness Eyes Eyes: Denies change in vision, Denies eye discharge, Denies irritation and Denies loss of vision ENT Ears, Nose, Mouth, and Throat: Denies change in voice, Denies dizziness, Denies neck pain, Denies sore throat and Denies throat swelling Cardiovascular Cardiovascular: Denies chest pain, Denies irregular heart rhythm, Denies lightheadedness, Denies palpitations, Denies dyspnea, Denies dyspnea on exertion and Denies orthopnea Respiratory Respiratory: Denies cough, Denies dyspnea, Denies dyspnea on exertion and Denies wheezing Gastrointestinal Gastrointestinal: Denies abdominal pain, Denies change in bowel habits, Denies diarrhea, Denies nausea and Denies vomiting Musculoskeletal Musculoskeletal: Denies neck pain and Denies numbness Integumentary/Breasts Skin/Breast: Denies pruritus, Denies erythema, Denies rash and Denies wounds Neurologic Neurologic: Denies behavioral changes, Denies confusion, Denies dizziness, Denies frequent falls, Denies loss of vision, Denies numbness, Reports seizure-like activity and Denies weakness Psychiatric Psychiatric: Denies anxiety, Denies behavioral changes, Denies confusion, Denies depression, Denies homicidal ideation and Denies suicidal ideation Endocrine Endocrine: Denies fatigue, Denies flushing and Denies palpitations Hematologic/Lymphatic Hematologic/Lymphatic: Denies easy bruising Allergic/Immunologic Allergic/Immunologic: Denies urticaria, Denies throat swelling and Denies wheezing Patient History Medical History Seizure disorder (Acute) Social History Smoking Status: Never smoker Smoking Status: Never smoker alcohol intake frequency: 0-2 drinks per day Substance Use Type: marijuana Exam Narrative Exam Narrative: GENERAL: [23] year old patient appears stated age. Well-nourished, well-developed patient, in mild distress. HEAD: Atraumatic. Normocephalic. EYES: Pupils equal round and reactive. Extraocular motions intact. No scleral icterus. No injection or drainage. ENT: Nose without bleeding, purulent drainage. Throat without erythema, tonsillar hypertrophy or exudate. Airway patent. NECK: Trachea midline. Non tender CARDIOVASCULAR: Regular rate and rhythm without murmurs, gallops, or rubs. RESPIRATORY: Clear to auscultation. Breath sounds equal bilaterally. No wheezes, rales, or rhonchi. GASTROINTESTINAL: Abdomen soft, non-tender, nondistended. EXTREMITIES: No edema or joint tenderness. BACK: Nontender without deformity or crepitance. No flank tenderness. NEURO: AOx3. Sleepy but easily arousable SKIN: No rash or erythema of visible areas Initial Vital Signs Initial Vital Signs: Vital Signs Pulse Rate 127 H 08/21/19 19:02 Respiratory Rate 18 08/21/19 19:02 Course Course Course Narrative: patient observed for a few hours and follows his typical pattern. Gradually becomes alert and asymptomatic. Patient denies missing any doses of his medications. Says he has an upcoming appointment with his neurologist. He denies any headache, blurred vision, fever or recent injury. Orders Ordered: ED Orders 08/21/19 19:25 Basic Metabolic Panel Stat Complete Blood Count AUTO DIFF Stat Magnesium Stat Prolactin Stat Valproic Acid (Depakene) Total Stat 08/21/19 21:20 Urinalysis Screen (Dip Only) Stat Urine Drug Screen, Rapid Stat Discontinued Medications Sodium Chloride (Normal Saline 0.9%) 1,000 mls @ 150 mls/hr IV CONT HUGO Last Infusion: 08/21/19 21:00 Dose: 0 mls/hr Documented by: Admin: 08/21/19 19:15 Dose: 150 mls/hr Documented by: LEANNE Sodium Chloride (Normal Saline 0.9%) 1,000 mls @ 1,000 mls/hr IV BOLUS ONE Stop: 08/21/19 22:06 Last Infusion: 08/21/19 22:07 Dose: 0 mls/hr Documented by: Admin: 08/21/19 21:11 Dose: 1,000 mls/hr Documented by: LEANNE Vital Signs Vital signs: Vital Signs - 8 hr 08/21/19 19:02 08/21/19 19:03 08/21/19 19:04 Temperature 98.8 F Pulse Rate 127 H 122 H 123 H Respiratory Rate 18 19 20 Blood Pressure 127/60 127/60 Pulse Oximetry 97 08/21/19 19:30 08/21/19 19:39 08/21/19 20:00 Temperature Pulse Rate 117 H 103 H 89 Respiratory Rate 45 H Blood Pressure 96/52 L 90/50 L Pulse Oximetry 98 97 98 08/21/19 20:30 08/21/19 21:00 08/21/19 21:30 Temperature Pulse Rate 100 H 76 81 Respiratory Rate Blood Pressure 93/51 L 82/47 L Pulse Oximetry 97 97 97 08/21/19 21:31 08/21/19 22:02 08/21/19 22:04 Temperature Pulse Rate 100 H Respiratory Rate Blood Pressure 121/58 L 135/72 Pulse Oximetry 93 08/21/19 22:30 08/21/19 23:00 Temperature Pulse Rate 80 79 Respiratory Rate 24 16 Blood Pressure 121/76 121/76 Pulse Oximetry 95 MDM - Seizure Lab Data Result diagrams: 08/21/19 19:25 08/21/19 19:25 Labs: Lab Results 08/21/19 08/21/19 08/21/19 Range/Units 19:25 19:25 21:20 WBC 8.7 (4.5-11.0) X10^3/uL RBC 4.80 (4.5-5.9) X10^6/uL Hgb 14.6 (13.5-17.5) g/dL Hct 42.0 (41-53) % MCV 87.6 (80-100) fL MCH 30.5 (26-34) PG MCHC 34.8 (30-36) % RDW 15.1 H (11.6-14.8) % Plt Count 300 (150-400) X10^3/uL Neut % (Auto) 80.0 H (50-75) % Lymph % (Auto) 11.8 L (25-40) % Scurry % (Auto) 5.7 (3-14) % Eos % (Auto) 1.2 L (2-4) % Baso % (Auto) 1.3 (0-2) % Neut # (Auto) 7000 (1404-8897) /uL Lymph # (Auto) 1000 L (0597-4745) /uL Scurry # (Auto) 500 (0-900) /uL Eos # (Auto) 100 (0-450) /uL Baso # (Auto) 100 (0-100) /uL Sodium 136 L (137-145) mmol/L Potassium 4.0 (3.4-5.1) mmol/L Chloride 99 (98-107) mmol/L Carbon Dioxide 22 (22-32) mmol/L BUN 11 (9-20) mg/dL Creatinine 0.77 (0.66-1.25) mg/dL Estimated GFR > 60.0 (>60) mL/min BUN/Creatinine Ratio 14.3 (6-22) Glucose 88 (70-100) mg/dL Calcium 9.4 (8.4-10.2) mg/dL Magnesium 2.1 (1.6-2.3) mg/dL Prolactin 14.4 (3.7-17.9) ng/mL Urine Color Yellow Urine Appearance Clear Urine pH 7.5 (4.5-8.0) Ur Specific Brothers 1.015 (1.000-1.035) Urine Protein Trace H (Negative) Urine Glucose (UA) Negative (Negative) g/dL Urine Ketones Negative (NEGATIVE) Urine Occult Blood Negative (Negative) Urine Nitrate Negative (Negative) Urine Bilirubin Negative (NEGATIVE) Urine Urobilinogen 0.2 (0.2) E.U./dL Ur Leukocyte Esterase Negative (NEGATIVE) U Opiates 300ng/mL cut (Negative) Ur Oxycodone Screen (Negative) Urine Methadone Screen (Negative) Ur Barbiturates Screen (Negative) U Tricyclic Antidepress (Negative) Ur Phencyclidine Scrn (Negative) Ur Amphetamines Screen (Negative) U Methamphetamines Scrn (Negative) Ur MDMA Scrn (Ecstasy) (Negative) U Benzodiazepines Scrn (Negative) Urine Cocaine Screen (Negative) U Marijuana (THC) Screen (Negative) 08/21/19 Range/Units 21:20 WBC (4.5-11.0) X10^3/uL RBC (4.5-5.9) X10^6/uL Hgb (13.5-17.5) g/dL Hct (41-53) % MCV (80-100) fL MCH (26-34) PG MCHC (30-36) % RDW (11.6-14.8) % Plt Count (150-400) X10^3/uL Neut % (Auto) (50-75) % Lymph % (Auto) (25-40) % Scurry % (Auto) (3-14) % Eos % (Auto) (2-4) % Baso % (Auto) (0-2) % Neut # (Auto) (6333-9451) /uL Lymph # (Auto) (4437-6591) /uL Scurry # (Auto) (0-900) /uL Eos # (Auto) (0-450) /uL Baso # (Auto) (0-100) /uL Sodium (137-145) mmol/L Potassium (3.4-5.1) mmol/L Chloride (98-107) mmol/L Carbon Dioxide (22-32) mmol/L BUN (9-20) mg/dL Creatinine (0.66-1.25) mg/dL Estimated GFR (>60) mL/min BUN/Creatinine Ratio (6-22) Glucose (70-100) mg/dL Calcium (8.4-10.2) mg/dL Magnesium (1.6-2.3) mg/dL Prolactin (3.7-17.9) ng/mL Urine Color Urine Appearance Urine pH (4.5-8.0) Ur Specific Brothers (1.000-1.035) Urine Protein (Negative) Urine Glucose (UA) (Negative) g/dL Urine Ketones (NEGATIVE) Urine Occult Blood (Negative) Urine Nitrate (Negative) Urine Bilirubin (NEGATIVE) Urine Urobilinogen (0.2) E.U./dL Ur Leukocyte Esterase (NEGATIVE) U Opiates 300ng/mL cut Negative (Negative) Ur Oxycodone Screen Negative (Negative) Urine Methadone Screen Negative (Negative) Ur Barbiturates Screen Negative (Negative) U Tricyclic Antidepress Negative (Negative) Ur Phencyclidine Scrn Negative (Negative) Ur Amphetamines Screen Negative (Negative) U Methamphetamines Scrn Negative (Negative) Ur MDMA Scrn (Ecstasy) Negative (Negative) U Benzodiazepines Scrn Positive H (Negative) Urine Cocaine Screen Negative (Negative) U Marijuana (THC) Screen Positive H (Negative) Point of Care Testing Glucose POC 101 Discharge Plan Departure Patient Disposition: Home Clinical Impression: Seizure disorder Discharge Date/Time: 08/21/19 23:00 Instructions: DI for Seizure Disorder -- Adult Activity Restrictions/Additional Instructions: *You have been diagnosed with [breakthrough seizure] *What to do: *Take medications as directed *Follow up with your primary care provider in 2-3 days, call for an appointment. Let them know you were seen in the Emergency Department and that we ask that you be seen in follow up *Return to ER if you should have any new, worsening or concerning symptoms Prescriptions: No Action divalproex [Depakote] 500 mg tablet,delayed release (DR/EC) 500 mg PO BID Qty: 60 RF: 0 Referrals: Jonas Gaffney MD [Primary Care Provider] -
[2019-08-21 19:47] LABS: BUN Creatinine Ratio 14.3 (6-22); Blood Urea Nitrogen 11 mg/dL (9-20); Calcium 9.4 mg/dL (8.4-10.2); Carbon Dioxide 22 mmol/L (22-32); Chloride 99 mmol/L (98-107); Estimated Glomerular Filt Rate > 60.0 mL/min (>60); Glucose 88 mg/dL (70-100); HEMOLYSIS < 15 (0-50); Magnesium 2.1 mg/dL (1.6-2.3); Sodium 136 mmol/L (137-145)
[2019-08-21 20:30] LABS: Prolactin 14.4 ng/mL (3.7-17.9)
[2019-08-21] MEDS: SODIUM CHLORIDE 0.9% 1,000 ML 1000 ML IV (21:11)
[2019-08-21 21:29] LABS: Appearance Urine UA CLEAR; Bilirubin Urine UA NEGATIVE (NEGATIVE); Color Urine UA YELLOW; Glucose Urine UA NEGATIVE (Negative); Ketones Urine UA NEGATIVE (NEGATIVE); Leukocyte Esterase Urine UA NEGATIVE (NEGATIVE); Nitrite Urine UA NEGATIVE (Negative); Occult Blood Urine UA NEGATIVE (Negative); Protein Urine UA TRACE (Negative); Specific Gravity Urine UA 1.015 (1.000-1.035); Urobilinogen Urine UA 0.2 E.U./dL (0.2); pH Urine UA 7.5 (4.5-8.0)
[2019-08-21 21:35] LABS: UR Morphine/Opiate cutoff 300 Negative (Negative); Ur Creatinine Normal (Normal); Ur Specific Gravity Normal (Normal); Urine Amphetamines Negative (Negative); Urine Barbiturates Negative (Negative); Urine Benzodiazepines Positive (Negative); Urine Cocaine Negative (Negative); Urine MDMA Negative (Negative); Urine Methadone Negative (Negative); Urine Methamphetamines Negative (Negative); Urine Oxycodone Negative (Negative); Urine Phencyclidine Negative (Negative); Urine Tetrahydrocannabinol Positive (Negative); Urine Tricyclic Antidepressant Negative (Negative); Urine pH Normal (Normal)
[2019-08-23 04:08] LABS: Valproic Acid (Depakene) Total < 4 ug/mL (50-100)
== END 2019-08-21 23:00 | disposition home or self-care (01) ==
PROVIDERS: Emergency Provider Emergency Medicine; PCP Pediatrics
DX: R56.9 Unspecified convulsions (principal)
CPT/HCPCS: 80048; 80164; 80305; 81003; 82962; 83735; 84146; 85025; 96360; 96361; 99283; 99284

== ENCOUNTER 2019-09-03 14:47 | Emergency (ER) | payer OTHER, MEDICAID, SELFPAY ==
[2019-09-03] VITALS (9 sets, daily range): BP systolic 101–116; BP diastolic 52–63; PULSE 72–102; RESP 12–24; TEMP 36.3–37.6; O2SAT 89–98; BMI 21.0
--- NOTE | 2019-09-03 15:10 | ED_ITS ---
HPI - Seizure General Chief Complaint: Seizure Stated Complaint: Syncope and seizure Time Seen by Provider: 09/03/19 14:57 Source: patient and EMS Mode of arrival: EMS Limitations: no limitations History of Present Illness HPI Narrative: Patient is awake alert orient x3. Does not recall his seizure event today prior to arrival. Patient brought in by ambulance was walking across a crosswalk, had a seizure. Patient has not taken his difficulty last 3 days. Patient arrived with C-collar. Denies any neck pain. Patient is awake alert oriented self due to place, home address. Able to answer today's date. Admits to marijuana use and alcohol but none this morning. He admits he does not take his Depakote as prescribed/daily. He does have a family physician Dr. kearney. He does have his supply of Depakote denies any limb injury other than abrasions to the fingers. No active bleeding. No tongue injury Accu-Chek 129 by EMS. Patient was here August 20 procedures well. Patient up-to-date with tetanus shot this past May 2019 complaint: seizure Related Data Previous Rx's Medication Instructions Recorded divalproex [Depakote] 500 mg PO BID #60 tab 03/08/19 Allergies Allergy/AdvReac Type Severity Reaction Status Date / Time No Known Drug Allergies Allergy Verified 09/03/19 14:54 Review of Systems Review of Systems Narrative: GENERAL: Denies chills, fatigue, malaise, fever, sweats. HEENT: Denies sinus pain, ear pain, sore throat, difficulty swallowing, dizziness. RESPIRATORY: Denies dyspnea, cough, wheezing, hemoptysis, sputum. CARDIOVASCULAR: Denies chest pain, palpitations, orthopnea, edema, GASTROINTESTINAL: Denies nausea, vomiting, abdominal pain, diarrhea, constipation, melena. : Denies dysuria, frequency, incontinence, hematuria, urinary retention. MUSCULOSKELETAL: denies weakness, joint pain, or bony pain SKIN: Denies rash, skin lesions, has abrasion to fingers NEUROLOGIC: Denies weakness, headache, numbness, change in speech, confusion, seizures, incoordination. PSYCHIATRIC: No concerning psychosocial issues. ROS Unobtainable: All systems reviewed & are unremarkable except as noted in HPI and below Patient History Medical History Seizure disorder (Acute) Social History Smoking Status: Current every day smoker Smoking Status: Current every day smoker alcohol intake frequency: 0-2 drinks per day Substance Use Type: marijuana and other Exam Narrative Exam Narrative: GENERAL: patient appears stated age. Well-nourished, well- developed patient, in no distress, not toxic HEAD: Contusion to the right upper forehead. No bleeding. Skin intact. EYES: Pupils equal round and reactive. Extraocular motions intact. No scleral icterus. No injection or drainage. ENT: Nose without bleeding, purulent drainage. Throat without erythema, tonsillar hypertrophy or exudate. Airway patent. NECK: Trachea midline. Non tender patient in C-collar CARDIOVASCULAR: Regular rate and rhythm without murmurs, gallops, or rubs. RESPIRATORY: Clear to auscultation. Breath sounds equal bilaterally. No wheezes, rales, or rhonchi. GASTROINTESTINAL: Abdomen soft, non-tender, nondistended. EXTREMITIES: No edema or joint tenderness. Small punctate abrasions to dorsum of the fingers bilaterally. No active bleeding. Full active toll gate tender without any pain or discomfort. BACK: Nontender without deformity or crepitance. No flank tenderness. NEURO: AOx3. SKIN: No rash or erythema of visible areas Initial Vital Signs Initial Vital Signs: Vital Signs Temperature 99.7 F H 09/03/19 14:54 Pulse Rate 102 H 09/03/19 14:54 Respiratory Rate 12 09/03/19 14:54 Blood Pressure 116/63 09/03/19 14:54 Pulse Oximetry 94 09/03/19 14:54 Course Course Course Narrative: C-collar cleared, patient not altered, CT scan cervical spine no acute process. No midline tenderness or step-off. Patient has been resting comfortably. Awakens easily. Not combative. Not disoriented. Orders Ordered: Discontinued Medications Bacitracin (Bacitracin) 1 applic TOP NOW ONE Stop: 09/03/19 17:52 Last Admin: 09/03/19 17:56 Dose: 1 applic Documented by: BRANDYN Valproic Acid 1,000 mg/ (Dextrose) 60 mls @ 60 mls/hr IV NOW ONE Stop: 09/03/19 16:29 Last Infusion: 09/03/19 17:56 Dose: 0 mls/hr Documented by: Infusion: 09/03/19 17:49 Dose: 0 mls/hr Documented by: Admin: 09/03/19 16:48 Dose: 60 mls/hr Documented by: MARK Reevaluation(s) Reevaluation #1: Patient denies any new complaints. Awake alert orient x3. He desires discharge home. Reviewed the results with him. Informed him do not skip his medications Time: 17:45 Vital Signs Vital signs: Vital Signs - 8 hr 09/03/19 14:54 09/03/19 15:23 09/03/19 15:30 Temperature 99.7 F H Pulse Rate 102 H 97 H 78 Respiratory Rate 12 Blood Pressure 116/63 101/52 L Pulse Oximetry 94 89 L 93 09/03/19 16:00 09/03/19 16:30 09/03/19 17:00 Temperature Pulse Rate 91 H 78 72 Respiratory Rate 22 24 Blood Pressure 104/56 L 111/57 L Pulse Oximetry 95 96 MDM - Seizure Lab Data Result diagrams: 09/03/19 15:40 09/03/19 15:40 Labs: Lab Results 09/03/19 09/03/19 09/03/19 Range/Units 15:40 15:40 15:40 WBC 9.8 (4.5-11.0) X10^3/uL RBC 4.93 (4.5-5.9) X10^6/uL Hgb 14.6 (13.5-17.5) g/dL Hct 42.2 (41-53) % MCV 85.6 (80-100) fL MCH 29.5 (26-34) PG MCHC 34.5 (30-36) % RDW 14.9 H (11.6-14.8) % Plt Count 363 (150-400) X10^3/uL Neut % (Auto) 83.2 H (50-75) % Lymph % (Auto) 11.8 L (25-40) % [place] % (Auto) 4.4 (3-14) % Eos % (Auto) 0.1 L (2-4) % Baso % (Auto) 0.5 (0-2) % Neut # (Auto) 8100 H (6817-9823) /uL Lymph # (Auto) 1200 (2134-6762) /uL [place] # (Auto) 400 (0-900) /uL Eos # (Auto) 0 (0-450) /uL Baso # (Auto) 0 (0-100) /uL Sodium (137-145) mmol/L Potassium (3.4-5.1) mmol/L Chloride (98-107) mmol/L Carbon Dioxide (22-32) mmol/L BUN (9-20) mg/dL Creatinine (0.66-1.25) mg/dL Estimated GFR (>60) mL/min BUN/Creatinine Ratio (6-22) Glucose (70-100) mg/dL Calcium (8.4-10.2) mg/dL Magnesium 2.0 (1.6-2.3) mg/dL Total Bilirubin (0.2-1.3) mg/dL AST (17-59) IU/L Alkaline Phosphatase (38-126) U/L Total Protein (6.3-8.2) g/dL Albumin (3.5-5.0) g/dL Globulin (1.7-4.1) g/dL Albumin/Globulin Ratio (1.0-2.8) Prolactin 13.8 (3.7-17.9) ng/mL Urine RBC (0-5/HPF) Urine WBC (0-5/HPF) Ur Squamous Epith Cells (0-5/HPF) Amorphous Sediment Urine Bacteria (None) Urine Mucus (Negative) Ur Culture Indicated? U Opiates 300ng/mL cut (Negative) Ur Oxycodone Screen (Negative) Urine Methadone Screen (Negative) Ur Barbiturates Screen (Negative) Total Valproic Acid < 4 L (50-100) ug/mL U Tricyclic Antidepress (Negative) Ur Phencyclidine Scrn (Negative) Ur Amphetamines Screen (Negative) U Methamphetamines Scrn (Negative) Ur MDMA Scrn (Ecstasy) (Negative) U Benzodiazepines Scrn (Negative) Urine Cocaine Screen (Negative) U Marijuana (THC) Screen (Negative) 09/03/19 09/03/19 09/03/19 Range/Units 15:40 16:57 16:57 WBC (4.5-11.0) X10^3/uL RBC (4.5-5.9) X10^6/uL Hgb (13.5-17.5) g/dL Hct (41-53) % MCV (80-100) fL MCH (26-34) PG MCHC (30-36) % RDW (11.6-14.8) % Plt Count (150-400) X10^3/uL Neut % (Auto) (50-75) % Lymph % (Auto) (25-40) % [place] % (Auto) (3-14) % Eos % (Auto) (2-4) % Baso % (Auto) (0-2) % Neut # (Auto) (4223-3926) /uL Lymph # (Auto) (7432-7791) /uL [place] # (Auto) (0-900) /uL Eos # (Auto) (0-450) /uL Baso # (Auto) (0-100) /uL Sodium 137 (137-145) mmol/L Potassium 3.7 (3.4-5.1) mmol/L Chloride 105 (98-107) mmol/L Carbon Dioxide 22 (22-32) mmol/L BUN 12 (9-20) mg/dL Creatinine 0.64 L (0.66-1.25) mg/dL Estimated GFR > 60.0 (>60) mL/min BUN/Creatinine Ratio 18.8 (6-22) Glucose 99 (70-100) mg/dL Calcium 10.2 (8.4-10.2) mg/dL Magnesium (1.6-2.3) mg/dL Total Bilirubin 0.5 (0.2-1.3) mg/dL AST 36 (17-59) IU/L Alkaline Phosphatase 92 (38-126) U/L Total Protein 7.6 (6.3-8.2) g/dL Albumin 4.6 (3.5-5.0) g/dL Globulin 3.0 (1.7-4.1) g/dL Albumin/Globulin Ratio 1.5 (1.0-2.8) Prolactin (3.7-17.9) ng/mL Urine RBC None seen (0-5/HPF) Urine WBC 1-5/hpf (0-5/HPF) Ur Squamous Epith Cells 0-1 /hpf (0-5/HPF) Amorphous Sediment 1+ Urine Bacteria None seen (None) Urine Mucus 1+ H (Negative) Ur Culture Indicated? Cult not indicated U Opiates 300ng/mL cut Negative (Negative) Ur Oxycodone Screen Negative (Negative) Urine Methadone Screen Negative (Negative) Ur Barbiturates Screen Negative (Negative) Total Valproic Acid (50-100) ug/mL U Tricyclic Antidepress Negative (Negative) Ur Phencyclidine Scrn Negative (Negative) Ur Amphetamines Screen Negative (Negative) U Methamphetamines Scrn Negative (Negative) Ur MDMA Scrn (Ecstasy) Negative (Negative) U Benzodiazepines Scrn Negative (Negative) Urine Cocaine Screen Negative (Negative) U Marijuana (THC) Screen Positive H (Negative) Urine Dip Bedside Urine Glucose Negative Bedside Urine Bilirubin + 1 Bedside Urine Ketone +++ 80 Urine Specific [place] 1.030 Bedside Urine Occult Blood - Negative Bedside Urine pH 5.5 Bedside Urine Protein + 30 Bedside Urine Urobilinogen - Negative Bedside Urine Nitrite - Negative Bedside Urine Leukocytes - Negative Esterase Imaging Data CT scan - head: Radiologist's Impression: [address] [address] [address] Scan Report Signed Patient: Brooks Tierney DMR#: [id number] : 1995Acct:[id number] Age/Sex: 23 / MDate of Service: 09/03/19 Loc: ED Accession Number: [id number] Procedure: CT head/brain wo con Ordering Provider: Max Moya MD PROCEDURE: CT HEAD/BRAIN WO CON INDICATIONS: Seizure TECHNIQUE: Noncontrast 4.5 mm thick angled axial sections acquired from the foramen magnum to the vertex, with coronal and sagittal reformats. For radiation dose reduction, the following was used: automated exposure control, adjustment of mA and/or kV according to patient size. COMPARISON: [facility], CT, CT HEAD/BRAIN WO CON, 08/09/2019, 18:55. [facility], CT, CT HEAD/BRAIN WO CON, 07/01/2019, 17:16. FINDINGS: Image quality: Excellent. CSF spaces: Basal cisterns are patent. No extra-axial fluid collections. Ventricles are normal in size and shape. Brain: No midline shift. No intracranial masses or hemorrhage. Redd-white matter interface is normal. Skull and face: Calvarium and visualized facial bones are intact, without suspicious lesions. Small right frontal scalp contusion. Sinuses: Visualized sinuses and mastoids are clear. IMPRESSION: No acute intracranial disease process. Dictated by: Sanjana Joe MD, PhD on 09/03/2019 at 15:35 Approved by: Sanjana Joe MD, PhD on 09/03/2019 at 15:36 CT - cervical spine: Radiologist's Impression: [address] [address] [address] Scan Report Signed Patient: Brooks Tierney DMR#: [id number] : 1995Acct:[id number] Age/Sex: 23 / MDate of Service: 09/03/19 Loc: ED Accession Number: [id number] Procedure: CT cervical spine wo con Ordering Provider: Max Moya MD PROCEDURE: CT CERVICAL SPINE WO CON INDICATIONS: Fall/seizure TECHNIQUE: Noncontrast 3 mm thick sections acquired from the skull base to the T4 level. Sagittal and coronal reformats were then constructed. For radiation dose reduction, the following was used: automated exposure control, adjustment of mA and/or kV according to patient size. COMPARISON: None. FINDINGS: Image quality: Excellent. Bones: No fractures or dislocations. Visualized superior ribs are intact. Soft tissues: Prevertebral soft tissues are normal in thickness. No paravertebral hematomas. No apical pneumothoraces. IMPRESSION: No fracture. No acute osseous lesion. If symptoms and/or clinical suspicion for pathology persists, evaluation with MRI may be helpful for further assessment. Dictated by: Sanjana Joe MD, PhD on 09/03/2019 at 15:37 Approved by: Sanjana Joe MD, PhD on 09/03/2019 at 15:42 ECG Data Attestation: I personally reviewed and interpreted this ECG as follows: Interpretation: EKG at 3:40 p.m.. Sinus rhythm, no ST elevation ventricular rate 81 MDM Narrative Medical decision making narrative: Appropriate for discharge home. Patient does have a history of seizures but is noncompliant with his medications. He does have supply of medications at home. He is not running low. The valproic acid levels are a send out and do not come back today. Patient was given IV dose here. As he has not taken in 3 days. Discharge Plan Departure Patient Disposition: Home Clinical Impression: Seizure, Abrasion of finger without infection Contusion of forehead Qualifiers: Encounter type: initial encounter Qualified Code(s): S00.83XA - Contusion of other part of head, initial encounter Discharge Date/Time: 09/03/19 18:06 Instructions: DI for Seizure Disorder -- Adult, DI for Abrasion Activity Restrictions/Additional Instructions: Do not, do not, do not skip taking your seizure medication. Do not do drugs. See your family doctor this week for recheck. Return if worse. Clean abrasions twice a day with warm soap and water and topical antibiotic. Return if worse or if any concerns or questions. Prescriptions: No Action divalproex [Depakote] 500 mg tablet,delayed release (DR/EC) 500 mg PO BID Qty: 60 RF: 0 Referrals: Jonas Gaffney MD [Primary Care Provider] -
[2019-09-03 15:48] LABS: Add Manual Diff / Slide Review NO; Basophils Absolute Auto 0 /uL (0-100); Basophils Percent Auto 0.5 % (0-2); Eosinophils Absolute Auto 0 /uL (0-450); Eosinophils Percent Auto 0.1 % (2-4); Hematocrit 42.2 % (41-53); Hemoglobin 14.6 g/dL (13.5-17.5); Lymphocytes Absolute Auto 1200 /uL (1100-4500); Lymphocytes Percent Auto 11.8 % (25-40); Mean Corpuscular HGB Conc 34.5 % (30-36); Mean Corpuscular Hemoglobin 29.5 PG (26-34); Mean Corpuscular Volume 85.6 fL (80-100); Monocytes Absolute Auto 400 /uL (0-900); Monocytes Percent Auto 4.4 % (3-14); Neutrophils Absolute Auto 8100 /uL (1500-7000); Neutrophils Percent Auto 83.2 % (50-75); Platelet Count 363 X10^3/uL (150-400); Red Blood Cell Count 4.93 X10^6/uL (4.5-5.9); Red Cell Distribution Width 14.9 % (11.6-14.8); White Blood Cell Count 9.8 X10^3/uL (4.5-11.0)
[2019-09-03 16:18] LABS: Albumin 4.6 g/dL (3.5-5.0); Albumin Globulin Ratio 1.5 (1.0-2.8); Alkaline Phosphatase 92 U/L (38-126); Aspartate Aminotransferase 36 IU/L (17-59); BUN Creatinine Ratio 18.8 (6-22); Bilirubin Total 0.5 mg/dL (0.2-1.3); Blood Urea Nitrogen 12 mg/dL (9-20); Calcium 10.2 mg/dL (8.4-10.2); Carbon Dioxide 22 mmol/L (22-32); Chloride 105 mmol/L (98-107); Estimated Glomerular Filt Rate > 60.0 mL/min (>60); Glucose 99 mg/dL (70-100); Potassium 3.7 mmol/L (3.4-5.1); Sodium 137 mmol/L (137-145); Total Protein 7.6 g/dL (6.3-8.2)
[2019-09-03 16:19] LABS: Prolactin 13.8 ng/mL (3.7-17.9)
[2019-09-03] MEDS: VALPROIC ACID 1,000 MG in DEXTROSE 5 % IN WATER 50 ML 60 ML IV (16:48)
[2019-09-03 17:07] LABS: Bacteria Urine None Seen; RBC Urine None Seen (0-5/HPF)
[2019-09-03 17:17] LABS: UR Morphine/Opiate cutoff 300 Negative (Negative); Ur Creatinine Normal (Normal); Ur Specific Gravity Normal (Normal); Urine Amphetamines Negative (Negative); Urine Barbiturates Negative (Negative); Urine Benzodiazepines Negative (Negative); Urine Cocaine Negative (Negative); Urine MDMA Negative (Negative); Urine Methadone Negative (Negative); Urine Methamphetamines Negative (Negative); Urine Oxycodone Negative (Negative); Urine Phencyclidine Negative (Negative); Urine Tetrahydrocannabinol Positive (Negative); Urine Tricyclic Antidepressant Negative (Negative); Urine pH Normal (Normal)
[2019-09-03 17:22] LABS: Amorphous Sediment Urine 1+; Culture Indicated Urine Cult Not Indicated; Mucus Urine 1+ (Negative); Squamous Epithelial Cell Urine 0-1 /HPF (0-5/HPF); WBC Urine 1-5/HPF (0-5/HPF)
[2019-09-03] MEDS: BACITRACIN OINT 0.9 GM PCKT 1 APPLIC TOP (17:56)
[2019-09-04 04:08] LABS: Valproic Acid (Depakene) Total < 4 ug/mL (50-100)
[2019-09-04 14:34] LABS: Alanine Aminotransferase 17 IU/L (<50); HEMOLYSIS 21 (0-50)
== END 2019-09-03 18:06 | disposition home or self-care (01) ==
PROVIDERS: Emergency Provider Emergency Medicine; PCP Pediatrics
DX: R56.9 Unspecified convulsions (principal); S60.419A Abrasion of unspecified finger, initial encounter; S00.83XA Contusion of other part of head, initial encounter; W19.XXXA Unspecified fall, initial encounter
CPT/HCPCS: 36415; 70450; 72125; 80053; 80164; 80305; 81003; 81015; 83735; 84146; 85025; 93005; 96365; 99284

== ENCOUNTER 2019-09-17 19:07 | Emergency (ER) | payer OTHER, MEDICAID, SELFPAY ==
[2019-09-17] VITALS (12 sets, daily range): BP systolic 93–130; BP diastolic 50–71; PULSE 68–116; RESP 14–16; TEMP 37.7; O2SAT 94–99
[2019-09-17 19:42] LABS: Add Manual Diff / Slide Review NO; Basophils Absolute Auto 100 /uL (0-100); Basophils Percent Auto 0.7 % (0-2); Eosinophils Absolute Auto 200 /uL (0-450); Eosinophils Percent Auto 1.3 % (2-4); Hematocrit 48.8 % (41-53); Hemoglobin 15.9 g/dL (13.5-17.5); Lymphocytes Absolute Auto 4600 /uL (1100-4500); Lymphocytes Percent Auto 29.3 % (25-40); Mean Corpuscular HGB Conc 32.6 % (30-36); Mean Corpuscular Hemoglobin 29.3 PG (26-34); Monocytes Absolute Auto 1100 /uL (0-900); Neutrophils Absolute Auto 9600 /uL (1500-7000); Neutrophils Percent Auto 61.7 % (50-75); Platelet Count 513 X10^3/uL (150-400); Red Blood Cell Count 5.42 X10^6/uL (4.5-5.9); Red Cell Distribution Width 15.6 % (11.6-14.8); White Blood Cell Count 15.6 X10^3/uL (4.5-11.0)
--- NOTE | 2019-09-17 19:47 | PC.NURSE ---
Pt states he no longer lives at home because his mother did not let him smoke marijuana at home. He is currently homeless and states he does not take his medications. He declined assistance at this time.
[2019-09-17 20:16] LABS: Alanine Aminotransferase 19 IU/L (<50); Albumin 4.7 g/dL (3.5-5.0); Albumin Globulin Ratio 1.5 (1.0-2.8); Alkaline Phosphatase 102 U/L (38-126); Aspartate Aminotransferase 33 IU/L (17-59); BUN Creatinine Ratio 18.3 (6-22); Bilirubin Total 0.5 mg/dL (0.2-1.3); Blood Urea Nitrogen 11 mg/dL (9-20); Calcium 9.9 mg/dL (8.4-10.2); Carbon Dioxide 23 mmol/L (22-32); Chloride 103 mmol/L (98-107); Estimated Glomerular Filt Rate > 60.0 mL/min (>60); Globulin 3.2 g/dL (1.7-4.1); Glucose 94 mg/dL (70-100); HEMOLYSIS < 15 (0-50); Potassium 4.1 mmol/L (3.4-5.1); Sodium 136 mmol/L (137-145); Total Protein 7.9 g/dL (6.3-8.2)
--- NOTE | 2019-09-17 20:16 | DI.CT.S_ITS ---
PROCEDURE: CT CERVICAL SPINE WO CON INDICATIONS: trauma, seizure TECHNIQUE: Noncontrast 3 mm thick sections acquired from the skull base to the T4 level. Sagittal and coronal reformats were then constructed. For radiation dose reduction, the following was used: automated exposure control, adjustment of mA and/or kV according to patient size. COMPARISON: None. FINDINGS: Image quality: Excellent. Bones: No fractures or dislocations. Visualized superior ribs are intact. Soft tissues: Prevertebral soft tissues are normal in thickness. No paravertebral hematomas. No apical pneumothoraces. IMPRESSION: No CT evidence of acute traumatic cervical spine injury. Dictated by: Zeb Norman M.D. on 09/17/2019 at 20:52 Approved by: Zeb Norman M.D. on 09/17/2019 at 20:54
--- NOTE | 2019-09-17 20:16 | DI.CT.S_ITS ---
PROCEDURE: CT FACIAL BONES WO CON INDICATIONS: Trauma, damage to front lower teeth, ? jaw fracture TECHNIQUE: Noncontrast 2.5 mm thick axial images acquired from the mandible through the frontal sinuses, with coronal and sagittal reformatting. For radiation dose reduction, the following was used: automated exposure control, adjustment of mA and/or kV according to patient size. COMPARISON: None. FINDINGS: Image quality: Excellent. Bones and teeth: There is a fracture of the lingual mandible cortex posterior to the central and lateral incisors bilaterally. The mandibular right lateral incisor is fractured and has been dramatically extracted from its root and is immediately adjacent to the tooth socket. There are periapical lucencies surrounding the bilateral central incisors as well as the left lateral incisors which are presumably posttraumatic in etiology as there is no carious disease or other evidence of periodontal disease. Remaining mandible is intact. The maxilla is intact. Maxillary teeth show no acute finding. Sinuses: Paranasal sinuses are aerated, without fluid levels, mucosal thickening, or mucoceles. Mastoid air cells are aerated. Soft tissues: No edema, masses, or fluid collections. No enlarged lymph nodes. No soft tissue lacerations or debris. IMPRESSION: Traumatic extraction of the right mandibular lateral incisor. Fracture of the midline parasymphyseal mandible, with fracture plane involving the lingual cortical ridge posterior to the central and lateral incisors. Periapical lucencies of the bilateral central and left lateral incisor suggests traumatic injury as well. Dictated by: Zeb Norman M.D. on 09/17/2019 at 20:46 Approved by: Zeb Norman M.D. on 09/17/2019 at 20:52
--- NOTE | 2019-09-17 20:19 | DI.CT.S_ITS ---
PROCEDURE: CT HEAD/BRAIN WO CON INDICATIONS: trauma/seizure TECHNIQUE: Noncontrast 4.5 mm thick angled axial sections acquired from the foramen magnum to the vertex, with coronal and sagittal reformats. For radiation dose reduction, the following was used: automated exposure control, adjustment of mA and/or kV according to patient size. COMPARISON: [facility], CT, CT HEAD/BRAIN WO CON, 09/03/2019, 15:09. [facility], CT, CT HEAD/BRAIN WO CON, 08/09/2019, 18:55. FINDINGS: Image quality: Excellent. CSF spaces: Basal cisterns are patent. No extra-axial fluid collections. Ventricles are normal in size and shape. Brain: No midline shift. No intracranial masses or hemorrhage. Redd-white matter interface is normal. Skull and face: Calvarium and visualized facial bones are intact, without suspicious lesions. Sinuses: Visualized sinuses and mastoids are clear. IMPRESSION: No trauma found, source of seizure activity is not seen. Dictated by: Ricky Leong M.D. on 09/17/2019 at 20:48 Approved by: Ricky Leong M.D. on 09/17/2019 at 20:50
--- NOTE | 2019-09-17 20:45 | PC.NURSE ---
Further eval demonstrates multiple broken teeth on bottom jaw. + jaw tenderness. No change in mobility of jaw. No active bleeding.
--- NOTE | 2019-09-17 21:03 | ED_ITS ---
HPI - Seizure <Evelyn Moss MD - Last Filed: 09/19/19 02:47> General Chief Complaint: Seizure Stated Complaint: seizure Time Seen by Provider: 09/17/19 19:20 History of Present Illness HPI Narrative: 24-year-old gentleman with a seizure disorder who is currently homeless and not taking his Depakote. He finds that the Depakote actually causes more side effects than having seizures every 2-3 weeks. His seizures typically are of sense but occasionally are grand mall. Today he was at the [employer] in the last thing he remembers was sitting on the edge of concrete wall. Medics were called for of grand mal seizure. They report that he bit his lip seizure head ended and he was postictal but hemodynamically stable and protecting his airway. Related Data Previous Rx's Medication Instructions Recorded divalproex [Depakote] 500 mg PO BID #60 tab 03/08/19 Allergies Allergy/AdvReac Type Severity Reaction Status Date / Time No Known Drug Allergies Allergy Verified 09/03/19 14:54 Review of Systems <Evelyn Moss MD - Last Filed: 09/19/19 02:47> Review of Systems Narrative: Pertinent positive and negative findings as per HPI Remainder of review of systems is otherwise unremarkable for Constitutional: Fevers, chills, weakness ENT: No sore throat, neck pain, ear pain CV: Chest pain, palpitations, dyspnea on exertion Respiratory: Cough, wheeze, dyspnea GI: Nausea, vomiting, diarrhea, change in bowel habits, black or bloody stools : Dysuria, hematuria, flank pain MS: Muscle weakness, numbness, joint swelling or warmth Skin: Rashes, nonhealing lesions Neuro: Syncope, dizziness, tingling Patient History <Evelyn Moss MD - Last Filed: 09/19/19 02:47> Medical History Marijuana use (Acute) Seizure disorder (Acute) Social History Smoking Status: Current every day smoker Smoking Status: Current every day smoker alcohol intake frequency: 0-2 drinks per day Substance Use Type: marijuana and other Exam <Evelyn Moss MD - Last Filed: 09/19/19 02:47> Narrative Exam Narrative: General: Healthy appearing, mildly postictal but clearing rapidly. Well-nourished well-developed HEENT: Moist mucous membranes, normal sclera with reactive pupils, tooth 10. Is completely avulsed and [id number] formed a bridge and all seem to be fractured at th e root with that section significantly mobile. There is no bruising under the tongue and no obvious deformities along the jaw itself. He is able to bite down without pain aside from that with those lower front teeth. Minor abrasion on the right cheek Neck: No JVD, supple, point tender at C 2,3,4 Respiratory: Lungs are clear to auscultation, no wheezing no rales no rhonchi. Full and symmetrical air movement Cardiac: Regular rate and rhythm no murmurs no bruits Abdomen: Soft nontender good bowel tones, no flank pain Skin: Warm and dry, no rashes Neurologic: Grossly neurologically intact with no obvious asymmetries or abnormalities, hyper-reflexic partner arms and legs with 2 beat clonus bilaterally Extremities: No trauma, well perfused Psych: Cooperative, appropriate affect Initial Vital Signs Initial Vital Signs: Vital Signs Temperature 99.8 F H 09/17/19 19:11 Pulse Rate 116 H 09/17/19 19:11 Respiratory Rate 16 09/17/19 19:11 Blood Pressure 130/71 09/17/19 19:11 Pulse Oximetry 97 09/17/19 19:11 <Max Moya MD - Last Filed: 09/19/19 07:29> Initial Vital Signs Initial Vital Signs: Vital Signs Temperature 99.8 F H 09/17/19 19:11 Pulse Rate 116 H 09/17/19 19:11 Respiratory Rate 16 09/17/19 19:11 Blood Pressure 130/71 09/17/19 19:11 Pulse Oximetry 97 09/17/19 19:11 Course <Evelyn Moss MD - Last Filed: 09/19/19 02:47> Orders Ordered: Discontinued Medications Acetaminophen (Tylenol) 975 mg PO NOW ONE Stop: 09/17/19 21:45 Last Admin: 09/17/19 21:52 Dose: 975 mg Documented by: RAJIV Acetaminophen (Tylenol) 650 mg PO NOW ONE Stop: 09/17/19 22:44 Last Admin: 09/17/19 22:52 Dose: Not Given Documented by: RAJIV Levetiracetam 1,000 mg/ Sodium (Chloride) 110 mls @ 440 mls/hr IV NOW ONE Stop: 09/18/19 05:09 Last Infusion: 09/18/19 06:00 Dose: 0 mls/hr Documented by: Admin: 09/18/19 05:43 Dose: 440 mls/hr Documented by: NICHOLE Penicillin G Benzathine (Bicillin L-A) 1,200,000 unit IM NOW ONE Stop: 09/17/19 21:19 Last Admin: 09/17/19 21:53 Dose: 1,200,000 unit Documented by: RAJIV Vital Signs Vital signs: Vital Signs - 8 hr 09/18/19 05:30 09/18/19 05:45 09/18/19 06:00 Pulse Rate 100 H 97 H 93 H Respiratory Rate 18 19 20 Blood Pressure 118/55 L 109/53 L 104/54 L Pulse Oximetry 99 99 100 09/18/19 06:15 09/18/19 06:30 09/18/19 06:45 Pulse Rate 90 90 84 Respiratory Rate 17 20 19 Blood Pressure 103/54 L 103/58 L Pulse Oximetry 98 97 98 09/18/19 07:00 09/18/19 07:15 09/18/19 07:30 Pulse Rate 79 77 69 Respiratory Rate 17 17 21 Blood Pressure 111/52 L 101/50 L 95/51 L Pulse Oximetry 98 98 98 09/18/19 07:45 09/18/19 08:00 09/18/19 08:15 Pulse Rate 74 71 71 Respiratory Rate 25 H 0 L 18 Blood Pressure 99/55 L 96/55 L 96/55 L Pulse Oximetry 98 99 99 09/18/19 08:30 09/18/19 08:45 09/18/19 09:00 Pulse Rate 75 76 78 Respiratory Rate 20 19 19 Blood Pressure 93/53 L 99/58 L 100/57 L Pulse Oximetry 97 97 100 09/18/19 09:30 09/18/19 09:45 09/18/19 10:00 Pulse Rate 97 H 103 H 103 H Respiratory Rate 18 18 20 Blood Pressure 126/63 121/65 127/70 Pulse Oximetry 100 100 99 09/18/19 10:16 09/18/19 10:30 09/18/19 10:45 Pulse Rate 110 H 101 H 109 H Respiratory Rate 19 19 21 Blood Pressure 111/78 112/60 128/69 Pulse Oximetry 100 97 98 09/18/19 11:00 09/18/19 11:15 09/18/19 11:30 Pulse Rate 99 H 107 H 112 H Respiratory Rate 21 19 20 Blood Pressure 114/71 120/68 Pulse Oximetry 98 97 98 09/18/19 11:31 09/18/19 11:45 09/18/19 12:00 Pulse Rate 109 H 90 111 H Respiratory Rate 14 23 22 Blood Pressure 125/72 120/68 140/83 Pulse Oximetry 99 98 98 <Max Moya MD - Last Filed: 09/19/19 07:29> Course Course Narrative: Time 7:00 a.m.. Sign-out from Dr. Moss, patient here for history of seizures. Patient is not compliant. I saw patient 2 weeks ago and he still has not refilled his seizure medications. Awaiting this morning for social work manager for continued care for patient and also for contacting oral surgery for follow-up. Office is open at 8:00 a.m.. Currently patient resting comfortably. On seizure precautions. Received Keppra last night. Orders Ordered: Discontinued Medications Acetaminophen (Tylenol) 975 mg PO NOW ONE Stop: 09/17/19 21:45 Last Admin: 09/17/19 21:52 Dose: 975 mg Documented by: RAJIV Acetaminophen (Tylenol) 650 mg PO NOW ONE Stop: 09/17/19 22:44 Last Admin: 09/17/19 22:52 Dose: Not Given Documented by: RAJIV Levetiracetam 1,000 mg/ Sodium (Chloride) 110 mls @ 440 mls/hr IV NOW ONE Stop: 09/18/19 05:09 Last Infusion: 09/18/19 06:00 Dose: 0 mls/hr Documented by: Admin: 09/18/19 05:43 Dose: 440 mls/hr Documented by: NICHOLE Penicillin G Benzathine (Bicillin L-A) 1,200,000 unit IM NOW ONE Stop: 09/17/19 21:19 Last Admin: 09/17/19 21:53 Dose: 1,200,000 unit Documented by: RAJIV Reevaluation(s) Reevaluation #1: Patient up awake alert walk to the bathroom. No seizure. Oriented to self and event. Spoke with patient he needs to get his prescription filled. I wrote him a prescription 2 weeks ago he has not gotten filled. For seizures. Spoke with him he needs to follow-up with oral surgeon tomorrow. The office is expecting his call today Time: 13:20 Consultations Consultation #1: Spoke with oral surgeon Dr. Louie. He has revealed CT scans. He would like to see patient in the office tomorrow as he is in surgery today Time: 13:21 Vital Signs Vital signs: Vital Signs - 8 hr 09/18/19 05:30 09/18/19 05:45 09/18/19 06:00 Pulse Rate 100 H 97 H 93 H Respiratory Rate 18 19 20 Blood Pressure 118/55 L 109/53 L 104/54 L Pulse Oximetry 99 99 100 09/18/19 06:15 09/18/19 06:30 09/18/19 06:45 Pulse Rate 90 90 84 Respiratory Rate 17 20 19 Blood Pressure 103/54 L 103/58 L Pulse Oximetry 98 97 98 09/18/19 07:00 09/18/19 07:15 09/18/19 07:30 Pulse Rate 79 77 69 Respiratory Rate 17 17 21 Blood Pressure 111/52 L 101/50 L 95/51 L Pulse Oximetry 98 98 98 09/18/19 07:45 09/18/19 08:00 09/18/19 08:15 Pulse Rate 74 71 71 Respiratory Rate 25 H 0 L 18 Blood Pressure 99/55 L 96/55 L 96/55 L Pulse Oximetry 98 99 99 09/18/19 08:30 09/18/19 08:45 09/18/19 09:00 Pulse Rate 75 76 78 Respiratory Rate 20 19 19 Blood Pressure 93/53 L 99/58 L 100/57 L Pulse Oximetry 97 97 100 09/18/19 09:30 09/18/19 09:45 09/18/19 10:00 Pulse Rate 97 H 103 H 103 H Respiratory Rate 18 18 20 Blood Pressure 126/63 121/65 127/70 Pulse Oximetry 100 100 99 09/18/19 10:16 09/18/19 10:30 09/18/19 10:45 Pulse Rate 110 H 101 H 109 H Respiratory Rate 19 19 21 Blood Pressure 111/78 112/60 128/69 Pulse Oximetry 100 97 98 09/18/19 11:00 09/18/19 11:15 09/18/19 11:30 Pulse Rate 99 H 107 H 112 H Respiratory Rate 21 19 20 Blood Pressure 114/71 120/68 Pulse Oximetry 98 97 98 09/18/19 11:31 09/18/19 11:45 09/18/19 12:00 Pulse Rate 109 H 90 111 H Respiratory Rate 14 23 22 Blood Pressure 125/72 120/68 140/83 Pulse Oximetry 99 98 98 MDM - Seizure <Evelyn Moss MD - Last Filed: 09/19/19 02:47> Medical Records Attestation: I reviewed the patient's medical records. Lab Data Attestation: I reviewed the patient's lab results. Lab results narrative: Leukocytosis with normal differential is likely secondary to acute seizure activity Result diagrams: 09/17/19 19:05 09/17/19 19:57 Labs: Lab Results 09/17/19 09/17/19 09/18/19 Range/Units 19:05 19:57 05:20 WBC 15.6 H (4.5-11.0) X10^3/uL RBC 5.42 (4.5-5.9) X10^6/uL Hgb 15.9 (13.5-17.5) g/dL Hct 48.8 (41-53) % MCV 90.0 (80-100) fL MCH 29.3 (26-34) PG MCHC 32.6 (30-36) % RDW 15.6 H (11.6-14.8) % Plt Count 513 H (150-400) X10^3/uL Neut % (Auto) 61.7 (50-75) % Lymph % (Auto) 29.3 (25-40) % [place] % (Auto) 7.0 (3-14) % Eos % (Auto) 1.3 L (2-4) % Baso % (Auto) 0.7 (0-2) % Neut # (Auto) 9600 H (6946-3251) /uL Lymph # (Auto) 4600 H (1944-2831) /uL [place] # (Auto) 1100 H (0-900) /uL Eos # (Auto) 200 (0-450) /uL Baso # (Auto) 100 (0-100) /uL Sodium 136 L (137-145) mmol/L Potassium 4.1 (3.4-5.1) mmol/L Chloride 103 (98-107) mmol/L Carbon Dioxide 23 (22-32) mmol/L BUN 11 (9-20) mg/dL Creatinine 0.60 L (0.66-1.25) mg/dL Estimated GFR > 60.0 (>60) mL/min BUN/Creatinine Ratio 18.3 (6-22) Glucose 94 (70-100) mg/dL Calcium 9.9 (8.4-10.2) mg/dL Total Bilirubin 0.5 (0.2-1.3) mg/dL AST 33 (17-59) IU/L ALT 19 (<50) IU/L Alkaline Phosphatase 102 (38-126) U/L Total Protein 7.9 (6.3-8.2) g/dL Albumin 4.7 (3.5-5.0) g/dL Globulin 3.2 (1.7-4.1) g/dL Albumin/Globulin Ratio 1.5 (1.0-2.8) U Opiates 300ng/mL cut Negative (Negative) Ur Oxycodone Screen Negative (Negative) Urine Methadone Screen Negative (Negative) Ur Barbiturates Screen Negative (Negative) U Tricyclic Antidepress Negative (Negative) Ur Phencyclidine Scrn Negative (Negative) Ur Amphetamines Screen Negative (Negative) U Methamphetamines Scrn Negative (Negative) Ur MDMA Scrn (Ecstasy) Negative (Negative) U Benzodiazepines Scrn Negative (Negative) Urine Cocaine Screen Negative (Negative) U Marijuana (THC) Screen Positive H (Negative) Imaging Data CT scan - head: Radiologist's Impression: MPRESSION: No trauma found, source of seizure activity is not seen. Dictated by: Ricky Leong M.D. on 09/17/2019 at 20:48 CT - cervical spine: Radiologist's Impression: IMPRESSION: No CT evidence of acute traumatic cervical spine injury. Dictated by: Zeb Norman M.D. on 09/17/2019 at 20:52 CT face: Radiologist's Impression: IMPRESSION: Traumatic extraction of the right mandibular lateral incisor. Fracture of the midline parasymphyseal mandible, with fracture plane involving the lingual cortical ridge posterior to the central and lateral incisors. Periapical lucencies of the bilateral central and left lateral incisor suggests traumatic injury as well. Dictated by: Zeb Norman M.D. on 09/17/2019 at 20:46 MDM Narrative Medical decision making narrative: 24-year-old gentleman with seizure disorder who is currently homeless. He smokes marijuana regularly and his mother has kicked him out of the house because of that. Now with significant damage to lower for front teeth (23 through 26) but no cervical spine injury or intracranial hemorrhage. Would certainly benefit from oral surgery consultation but I suspect he will not be able nor interested in actually following through. He is not interested in continuing his Depakote. We did discuss risk reduction and I suggested if he was going to continue using marijuana that he buy marijuana that has the highest CBD content that he can find. Because of his low risk for follow through on any medical advice I am going to give him a shot of IM penicillin for the technical open fracture of the jaw 502am patient has been allowed to sleep through the night. He got up wants to walk to the bathroom and plug in his phone. Earlier in the evening, he did say that he was hungry and had not eaten over the course of the day. He was offered yogurt, applesauce and did not choose to eat any of it. At 5:02 a.m. his heart rate jumped to the sinus tach and he began seizing. The seizure was in a full grand mal seizure. His eyes were deviated up and to the left with significant increased motor tone and writhing movements of the arms, a bit of drooling with jaw clenching. He was given 2 mg of Ativan, once the larger motor activity calmed he was placed on oxygen with saturations coming up to the upper 90s. IV Keppra is ordered. Seizure activity stopped at 5:12 a.m. he remains postictal. In his current postictal state a straight catheterization is performed for urine drug screen. IV Keppra will be infused. If he is willing to stay long enough for social research assistant consult I think he could certainly benefit from additional help in terms of living situation and the medications stability (or at least willing to take it at all). With the jaw fracture he will benefit from oral surgery consultation. <Max Moya MD - Last Filed: 09/19/19 07:29> Differential Diagnosis Differential diagnosis: Likely generalized seizure Lab Data Labs: Lab Results 09/17/19 09/17/19 09/18/19 Range/Units 19:05 19:57 05:20 WBC 15.6 H (4.5-11.0) X10^3/uL RBC 5.42 (4.5-5.9) X10^6/uL Hgb 15.9 (13.5-17.5) g/dL Hct 48.8 (41-53) % MCV 90.0 (80-100) fL MCH 29.3 (26-34) PG MCHC 32.6 (30-36) % RDW 15.6 H (11.6-14.8) % Plt Count 513 H (150-400) X10^3/uL Neut % (Auto) 61.7 (50-75) % Lymph % (Auto) 29.3 (25-40) % [place] % (Auto) 7.0 (3-14) % Eos % (Auto) 1.3 L (2-4) % Baso % (Auto) 0.7 (0-2) % Neut # (Auto) 9600 H (2710-8146) /uL Lymph # (Auto) 4600 H (5022-5085) /uL [place] # (Auto) 1100 H (0-900) /uL Eos # (Auto) 200 (0-450) /uL Baso # (Auto) 100 (0-100) /uL Sodium 136 L (137-145) mmol/L Potassium 4.1 (3.4-5.1) mmol/L Chloride 103 (98-107) mmol/L Carbon Dioxide 23 (22-32) mmol/L BUN 11 (9-20) mg/dL Creatinine 0.60 L (0.66-1.25) mg/dL Estimated GFR > 60.0 (>60) mL/min BUN/Creatinine Ratio 18.3 (6-22) Glucose 94 (70-100) mg/dL Calcium 9.9 (8.4-10.2) mg/dL Total Bilirubin 0.5 (0.2-1.3) mg/dL AST 33 (17-59) IU/L ALT 19 (<50) IU/L Alkaline Phosphatase 102 (38-126) U/L Total Protein 7.9 (6.3-8.2) g/dL Albumin 4.7 (3.5-5.0) g/dL Globulin 3.2 (1.7-4.1) g/dL Albumin/Globulin Ratio 1.5 (1.0-2.8) U Opiates 300ng/mL cut Negative (Negative) Ur Oxycodone Screen Negative (Negative) Urine Methadone Screen Negative (Negative) Ur Barbiturates Screen Negative (Negative) U Tricyclic Antidepress Negative (Negative) Ur Phencyclidine Scrn Negative (Negative) Ur Amphetamines Screen Negative (Negative) U Methamphetamines Scrn Negative (Negative) Ur MDMA Scrn (Ecstasy) Negative (Negative) U Benzodiazepines Scrn Negative (Negative) Urine Cocaine Screen Negative (Negative) U Marijuana (THC) Screen Positive H (Negative) Discharge Plan Departure Patient Disposition: Home Clinical Impression: Seizure disorder, Seizure Fracture, jaw Qualifiers: Encounter type: initial encounter Fracture type: open Qualified Code(s): S02.609B - Fracture of mandible, unspecified, initial encounter for open fracture Discharge Date/Time: 09/18/19 13:50 Instructions: DI for Seizure Disorder -- Adult, DI for Jaw Fracture, DI for Fractured Tooth Activity Restrictions/Additional Instructions: Drink plenty of fluids. Be sure to fill your prescription for your seizures today. Return if worse or if any questions. Call Dr. Ley today to confirm the office time tomorrow. Office is expecting you. Do not skip your seizure medication. Do not bite on crunchy or solid foods. May eat soft foods including milk shakes, pastas. Prescriptions: No Action divalproex [Depakote] 500 mg tablet,delayed release (DR/EC) 500 mg PO BID Qty: 60 RF: 0 Referrals: Jonas Gaffney MD [Primary Care Provider] - Pedro Ley DMD [Physician] -
[2019-09-17] MEDS: ACETAMINOPHEN 325 MG TABLET 975 MG PO (21:52)
[2019-09-17] MEDS: PENICILLIN G BENZATHINE 1,200,000 UNIT/2 ML SYRINGE 1200000 UNIT IM (21:53)
[2019-09-18] VITALS (40 sets, daily range): BP systolic 93–140; BP diastolic 50–83; PULSE 58–112; RESP 0–25; O2SAT 96–100
[2019-09-18] MEDS: LORazepam 2 MG/ML INJ (05:04)
--- NOTE | 2019-09-18 05:10 | PC.NURSE ---
Pt up and OOB to BR. Ambulating with steady gait. States hes feeling better. Went back to room. Placed back on monitoring. Shortly thereafter pt's HR noted to be 148. RN x 2 in room. Pt noted to be seizing at 0502. seizure pads previously in place. Eyes up and to the left with quick rhythmic movement. Diaphoretic. Oral suctioned, pt turned on side. Dr Moss at bedside. 2mg IV ativan given at 0504. 85% RA. NRB at 15L and NC at 15L applied. Sat improved to 97%. Seizure appears to have stopped at 0512. NC removed and pt remains on NRB. Coordinator made aware of need of Radha from night pharmacy. Pt straight cath'd for urine and sample sent to lab.
[2019-09-18 05:35] LABS: UR Morphine/Opiate cutoff 300 Negative (Negative); Ur Creatinine Normal (Normal); Ur Specific Gravity Normal (Normal); Urine Amphetamines Negative (Negative); Urine Barbiturates Negative (Negative); Urine Benzodiazepines Negative (Negative); Urine Cocaine Negative (Negative); Urine MDMA Negative (Negative); Urine Methadone Negative (Negative); Urine Methamphetamines Negative (Negative); Urine Oxycodone Negative (Negative); Urine Phencyclidine Negative (Negative); Urine Tetrahydrocannabinol Positive (Negative); Urine Tricyclic Antidepressant Negative (Negative); Urine pH Normal (Normal)
[2019-09-18] MEDS: levETIRAcetam 1,000 MG in SODIUM CHLORIDE 0.9% 100 ML 440 ML IV (05:43)
--- NOTE | 2019-09-18 07:45 | PC.NURSE ---
0745 assumed care of patient at this time. Pt remains in room 6 in view of nursing station. Seizure precautions, and monitor remain in place. Pt resting comfortably, respirations even and unlabored. Pt appears to be in no acute distress. Meal tray ordered for patient.
--- NOTE | 2019-09-18 08:30 | PC.NURSE ---
Discussion with Margarita director social service. She will be down to attempt plan for patient.
--- NOTE | 2019-09-18 08:31 | CM.SWNOTE ---
Addendum entered by JACKIE Arreguin 09/18/19 11:19: ADD: Per MD, consulting with oral surgeon but no need to admit or transfer pt for higher level of care. Pt will d/c after oral Consult today. SW met bedside with pt in ED 6 and explained role and pt laying down and somewhat drowsy from his medications and looks somewhat unkept but makes eye contact but speaking softly due to mandible fx and broken teeth. Pt confirms that he is not staying with his parents and that they have not been very involved with his medical needs/care this year and he has been couch surfing with his friends. Pt feels his friends are reliable and a consistent support to him and he has no concerns with having a place to stay at d/c. Pt denies the need to sleep outdoors or use senior living at this time. Tentative plan for looking for an apt with a friend on [facility]. Pt not very aware of community resources available and agreeable to Basic Needs Resources (food, housing, etc) for both [facility]. Pt denies working right now and denies receiving any unemployment or food/potts assistance at this time. Pt non-committal in regards to possible referral to a specialist to determine if any other seizure med might work better for the patient or any other follow up regarding his medical needs at this time but agreeable to the Oral Consult prior to d/c. TRAFFIC LAW ATTORNEY made referral to [facility] to determine if pt meets criteria for a embedded case manager to follow him in the outpt setting as he could benefit greatly to have a embedded case manager coordinate appointments for follow up as well as assist with housing and basic needs on a consistent basis. Pt aware and agreeable. Pt not requesting any further assist and not voicing any further concerns. ОЛЕГ provided the community resources and [facility] referral and updated RN and MD. JACKIE Arreguin Original Note: TRAFFIC LAW ATTORNEY Consult Patient is a 24 year old male who was admitted to [facility] ED on 09/17/19 for Seizure/Homelessness. Pt has [employer] for insurance and his PCP is Dr. Jonas Gaffney. EMR was reviewed. Per MD, pt has a hx of seizure disorder with non-compliance with seizure meds. Per RNMD consulting to determine if any need to admit or transfer patient for seizure disorder needs and witnessed seizure this morning by staff around 0500 but not grand mall. Pt was brought to ED by EMS due to grand mall seizure with now need for oral surgeon consult for damage to his lower jaw/mouth from seizure. Pt has a hx of 8 ED visits at [facility] for seizure type medical needs since Feb 2019 this year. UDS returned with positive for THC which pt admits he uses which led to him getting asked to leave his parents house and now currently being considered homeless. Plan: TRAFFIC LAW ATTORNEY to complete bedside assessment with pt this morning after MD rounds towards determining d/c planning needs of community resources etc.. JACKIE Arreguin
--- NOTE | 2019-09-18 10:30 | PC.NURSE ---
Discussion with Margarita MEJIA. Pt reports having friends who can help him and pt has been provided with community resources. Pt reports pain in mouth. Updated on waiting for oral surgery to look at CT images. Pt returns to resting comfortably.
== END 2019-09-18 13:50 | disposition home or self-care (01) ==
PROVIDERS: Emergency Medicine; Emergency Provider Emergency Medicine; PCP Pediatrics
DX: G40.909 Epilepsy, unspecified, not intractable, without status epilepticus (principal); S02.609B Fracture of mandible, unspecified, initial encounter for open fracture; W19.XXXA Unspecified fall, initial encounter
CPT/HCPCS: 36415; 70450; 70486; 72125; 80053; 80305; 85025; 96365; 96372; 99285; J0561; J1953; J2060